=== PATIENT | male | born 1970 | race Two or more races ===

== ENCOUNTER 2024-09-19 15:11 | Outpatient (AMB) | payer MEDICAID, SELFPAY ==
[2024-09-19 15:26] VITALS: BP 142/85; PULSE 62; RESP 18; TEMP 36.6; O2SAT 97; BMI 28.2
--- NOTE | 2024-09-19 15:26 | ORTHONT_ITS ---
Vital signs 09/19/24 15:26 Height 1.8 m Height Method Stated Weight 91.399 kg Weight Measurement Method Standing Scale BMI 28.2 BP 142/85 H Blood Pressure Source Automatic Cuff Blood Pressure Location Right Upper Arm Position Sitting Respiration 18 Pulse 62 Pulse Source Monitor Temp 97.8 F Temp Source Temporal Artery Scan Pulse Oximetry (%) 97 Oxygen Delivery Method Room Air Med/Allergies Allergies & Medications Allergies No Known Allergies Allergy (Verified 09/19/24 15:27) Medication Reconciliation oxycodone 5 mg capsule 5 mg PO Q6H PRN Pain 03/26/24 [History Confirmed 09/19/24] Subjective Visit Visit for: follow up visit Immunization / Flu Flu Vaccine in the Last 12 Months: No Flu Vaccine Exclusion Criteria: No Exclusion Criteria History of Present Illness Chief complaint: hip incision area hurts, hears popping sound Patient is a 53-year-old male who is 5 months from a left hip cephalomedullary nail. He is walking without any assistive device. He has minimal pain. 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 Exam Exam Patient is in no acute distress and is cooperative with the examination today. Patient has a normal mood and affect. Breathing is nonlabored. In no respiratory distress. Bilateral extremities were evaluated and demonstrates sensation intact to light touch. Palpable pedal pulses are present. No significant edema is present. Left hip incision is clean dry intact. He has no pain with logroll His gait is nonantalgic. Assessment and Plan Problem List (1) Intertrochanteric fracture of left hip: Qualifiers: Encounter type: subsequent encounter Fracture type: closed Fracture alignment: nondisplaced Fracture healing: with routine healing Qualified Code(s): S72.145D - Nondisplaced intertrochanteric fracture of left femur, subsequent encounter for closed fracture with routine healing Status: Acute Plan: Patient is a pleasant 53-year-old male status post cephalomedullary nail for intertrochanteric fracture. The patient is doing well. He has Minimal pain We will get new x-rays as he reports a little bit of tenderness laterally. He reports that he feels some clicking. Office Procedures GNS Level of Care Nursing/Assessment Patient Status: Established Patient Nursing Assessment/Reassesment: Medication Reconciliation, Update PMH in EMR and Vital Signs Coordination of Care: Complex Care and Chronic Disease 1-5, Education Complex Pt/Fam, Consent,records obtained, informed consent, Results/Orders obtained and Staff clarify orders Special Needs: Language special needs Established Patient Charge Established Patient Point Assignment: 95 Established Patient Point Charge: EP Level 3 (80-115) Past Medical History Past Medical History Have you ever been diagnosed with any of the following: Neurological Problems Cerebrovascular Accident (CVA): No Seizures: No Cardiology Problems Atrial Fibrillation: No Hypercholesterolemia: Yes Congestive Heart Failure: No Hypertension: Yes (controlled at this time, not taking meds any more) Respiratory Problems Chronic Obstructive Pulmonary Disease (COPD): No Asthma: No Pneumonia: No Sleep Apnea: No Hx Cough: No Cough: No Wheezing: No Smoking: No Smoking Cessation Counseling: No Smoking Exposure: No Tobacco Use: No Clubbing: No Stomache/Intestinal Problems Hepatitis: No Gastroesophageal Reflux Disease: Yes Genital/Urinary Problems Renal Disease: No Reproductive Problems Testicular Cancer: No Musculoskeletal Problems Arthritis: Yes Carpal Tunnel Syndrome: No Fractures: Yes (hip fx left) Head,Eye,Nose,Throat Problems Cataracts: Yes Endocrine Problems Diabetes Mellitus Type 1: No Diabetes Mellitus Type 2: Yes Blood Problems Anemia: No Psychologic Problems Depression: Yes Anxiety: Yes Other Problems Hospitalization: Yes Down Syndrome: No Developmental Delay: No Shingles: No Falls: No Blood Transfusions: No Blood Transfusion Reaction: No Anesthesia Reactions: No Organ Transplant: No Chemotherapy: Yes (2 days ago) Radiation Therapy: Yes (last week) Hyperbaric Therapy: No MRSA: No VRSA: No Vancomycin-Resistant Enterococci: No Human Immunodeficiency Virus (HIV): No Chicken Pox: No Measles: No Mumps: No Rubella (Pashto Measles): No Pertussis: No Clostridium Difficile: No Cancer: Yes (multiple myeloma) Surgical History Pacemaker: No
== END 2024-09-19 15:53 | disposition home or self-care (01) ==
LOC: HODSRG 15:11
PROVIDERS: Supervising Provider Orthopaedic Surgery Adult Reconstructive Orthopaedic Surgery; Visit Provider Orthopaedic Surgery Adult Reconstructive Orthopaedic Surgery
DX: S72.145D Nondisplaced intertrochanteric fracture of left femur, subsequent encounter for closed fracture with routine healing (principal); X58.XXXD Exposure to other specified factors, subsequent encounter; I10 Essential (primary) hypertension; E78.00 Pure hypercholesterolemia, unspecified
CPT/HCPCS: 99213; G0463

== ENCOUNTER 2024-10-10 14:38 | Outpatient (AMB) | payer MEDICAID, SELFPAY ==
[2024-10-10 14:51] VITALS: BP 125/81; PULSE 57; RESP 18; TEMP 36.6; O2SAT 94; BMI 28.5
--- NOTE | 2024-10-10 14:51 | ORTHONT_ITS ---
Vital signs 10/10/24 14:51 Height 1.8 m Height Method Stated Weight 92.334 kg Weight Measurement Method Standing Scale BMI 28.5 BP 125/81 Blood Pressure Source Automatic Cuff Blood Pressure Location Right Upper Arm Position Sitting Respiration 18 Pulse 57 L Pulse Source Monitor Temp 97.8 F Temp Source Temporal Artery Scan Pulse Oximetry (%) 94 L Oxygen Delivery Method Room Air Med/Allergies Allergies & Medications Allergies No Known Allergies Allergy (Verified 10/10/24 14:51) Medication Reconciliation oxycodone 5 mg capsule 5 mg PO Q6H PRN Pain 03/26/24 [History Confirmed 10/10/24 ] Subjective Visit Visit for: follow up visit, hip and x-rays Immunization / Flu Flu Vaccine in the Last 12 Months: No Flu Vaccine Exclusion Criteria: No Exclusion Criteria History of Present Illness Chief complaint: F/U HIP XRAYS Patient is a 53-year-old male who is 5 months from a left hip cephalomedullary nail. He is walking without any assistive device. He has minimal pain. 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 Exam Exam Patient is in no acute distress and is cooperative with the examination today. Patient has a normal mood and affect. Breathing is nonlabored. In no respiratory distress. Bilateral extremities were evaluated and demonstrates sensation intact to light touch. Palpable pedal pulses are present. No significant edema is present. Left hip incision is clean dry intact. He has no pain with logroll His gait is nonantalgic. X-rays of the left hip intratrochanteric fracture demonstrates good healing Assessment and Plan Problem List (1) Intertrochanteric fracture of left hip: Qualifiers: Encounter type: subsequent encounter Fracture type: closed Fracture alignment: nondisplaced Fracture healing: with routine healing Qualified Code(s): S72.145D - Nondisplaced intertrochanteric fracture of left femur, subsequent encounter for closed fracture with routine healing Status: Acute Plan: Patient is a pleasant 54-year-old male status post cephalomedullary nail for intertrochanteric fracture. The patient is doing well. He has Minimal pain He is doing well. He can see me on an as-needed basis Office Procedures GNS Level of Care Nursing/Assessment Patient Status: Established Patient Nursing Assessment/Reassesment: Medication Reconciliation, Update PMH in EMR and Vital Signs Coordination of Care: Complex Care and Chronic Disease 1-5, Education Complex Pt/Fam, Consent,records obtained, informed consent, Results/Orders obtained and Staff clarify orders Special Needs: Language special needs Established Patient Charge Established Patient Point Assignment: 95 Past Medical History Past Medical History Have you ever been diagnosed with any of the following: Neurological Problems Cerebrovascular Accident (CVA): No Seizures: No Cardiology Problems Atrial Fibrillation: No Hypercholesterolemia: Yes Congestive Heart Failure: No Hypertension: Yes (controlled at this time, not taking meds any more) Respiratory Problems Chronic Obstructive Pulmonary Disease (COPD): No Asthma: No Pneumonia: No Sleep Apnea: No Hx Cough: No Cough: No Wheezing: No Smoking: No Smoking Cessation Counseling: No Smoking Exposure: No Tobacco Use: No Clubbing: No Stomache/Intestinal Problems Hepatitis: No Gastroesophageal Reflux Disease: Yes Genital/Urinary Problems Renal Disease: No Reproductive Problems Testicular Cancer: No Musculoskeletal Problems Arthritis: Yes Carpal Tunnel Syndrome: No Fractures: Yes (hip fx left) Head,Eye,Nose,Throat Problems Cataracts: Yes Endocrine Problems Diabetes Mellitus Type 1: No Diabetes Mellitus Type 2: Yes Blood Problems Anemia: No Psychologic Problems Depression: Yes Anxiety: Yes Other Problems Hospitalization: Yes Down Syndrome: No Developmental Delay: No Shingles: No Falls: No Blood Transfusions: No Blood Transfusion Reaction: No Anesthesia Reactions: No Organ Transplant: No Chemotherapy: Yes (2 days ago) Radiation Therapy: Yes (last week) Hyperbaric Therapy: No MRSA: No VRSA: No Vancomycin-Resistant Enterococci: No Human Immunodeficiency Virus (HIV): No Chicken Pox: No Measles: No Mumps: No Rubella ([place] Measles): No Pertussis: No Clostridium Difficile: No Cancer: Yes (multiple myeloma) Surgical History Pacemaker: No
== END 2024-10-10 15:11 | disposition home or self-care (01) ==
LOC: HODSRG 14:38
PROVIDERS: Supervising Provider Orthopaedic Surgery Adult Reconstructive Orthopaedic Surgery; Visit Provider Orthopaedic Surgery Adult Reconstructive Orthopaedic Surgery
DX: S72.142D Displaced intertrochanteric fracture of left femur, subsequent encounter for closed fracture with routine healing (principal); X58.XXXD Exposure to other specified factors, subsequent encounter; I10 Essential (primary) hypertension; E78.00 Pure hypercholesterolemia, unspecified
CPT/HCPCS: 99213; G0463

== ENCOUNTER 2024-12-13 01:34 | Emergency (ER) | payer MEDICAID, SELFPAY ==
[2024-12-13 01:35] VITALS: BMI 27.3
[2024-12-13 01:58] VITALS: BP 157/89; PULSE 66; RESP 17; TEMP 36.6; O2SAT 98
--- NOTE | 2024-12-13 02:09 | PD.EDRME ---
Rapid Medical Screening Exam RME Arrival date/time: 12/13/24 01:34 54-year-old male past medical history multiple myeloma and lower back radiation presents emergency department complaining of low back pain that radiates to left leg with left leg numbness that is been ongoing for 1 week. Patient denies any bowel or bladder dysfunction. Time Seen by Provider: 12/13/24 01:44 Vital signs: Vital Signs Temperature 97.9 F 12/13/24 01:58 Pulse Rate 66 12/13/24 01:58 Respiratory Rate 17 12/13/24 01:58 Blood Pressure 157/89 H 12/13/24 01:58 Pulse Oximetry (%) 98 12/13/24 01:58 Oxygen Delivery Method Room Air 12/13/24 01:58 Vital signs reviewed by provider: Yes
--- NOTE | 2024-12-13 02:10 | XR_ITS ---
Examination: CT lumbar spine, without contrast. 2-D sagittal reconstructions. 2-D coronal reconstructions. 3-D reconstructions. Date and time of exam:December 13, 2024 0225 hrs. Indications: Lower back pain today, history bone cancer, diagnosis multiple myeloma CTDI: vol (mGy):24.9 DLP: (mGycm):928 Technique: Multiple 1.25 mm axial sections of the lumbar spine without intravenous contrast have been obtained. 2-D sagittal and coronal reconstructions have been obtained. 3-D reconstructions have been obtained. Low dose protocols were performed. One or more of the following dose reduction techniques were used; automated exposure control, adjustment of the mA and/or KV according to patient size, use of iterative reconstruction technique. 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
[2024-12-13] MEDS: GABAPENTIN 300 MG CAPSULE PO (02:15)
--- NOTE | 2024-12-13 03:49 | PRELIM_ITS ---
CT scan of the lumbar spine without intravenous contrast (axial sections with sagittal and coronal re formats) December 13, 2024 at 0225 hours Clinical History: Low back pain. Correlated with prior MRI [facility] dated February 28, 2024.Findings:Chronic pathologic compression fracture of the vertebral body of L3 , acute on chronic fracture at this level cannot be excluded. Innumerable lytic bone metastases invol ving all the imaged bone segments.No acute fractures.Vascular calcifications.Loss of the physiologic lumbar lordosis.Mild posterior disc bulging at L2-L3, L3-L4, and L4-L5 without evidence of spinal can al stenosis or neuroforaminal narrowing.Impression:1. Diffuse metastatic bone disease. If leptomening eal disease is clinically suspected consider correlation with MRI with and without contrast.2. Chroni c pathologic compression fracture of the vertebral body of L3, acute on chronic fracture at this leve l cannot be excluded. Consider correlation with MRI.3. Mild posterior disc bulging at L2-L3, L3-L4, and L4-L5 without evidence of spinal canal stenosis or neuroforaminal narrowing. Consider correlation with MRI if clinically indicated. Report Electronically Signed By: Nolan Padron 12/13/2024 3:48:5 3 AM [EST]
--- NOTE | 2024-12-13 06:43 | XR_ITS ---
Examination:Left hip AP, lateral, AP pelvis 3 views Technique: Hip AP lateral, AP pelvis, 3 views Exam date and time:December 13, 2024 0704 hrs. Indications: Left hip pain beginning one week ago, history left hip surgery 11 months ago Findings: Status post operative reduction internal fixation left hip fracture with satisfactory alignment There appears to be significant healing at the left hip fracture site No definite loosening of the orthopedic hardware No hip dislocation Impression: Healed left hip fracture with adequate alignment However, consider CT scan left hip femoral shaft follow-up if the patient has persisting pain.
--- NOTE | 2024-12-13 06:43 | XR_ITS ---
Examination: Left femur 2 views Technique one AP lateral left femur 2 views Exam date and time: December 13, 2024 0710 hrs. Comparison September 19, 2024 Indications: Onset left hip pain left leg pain beginning one week ago, left hip surgery 11 months ago Findings: Healed fracture left hip Orthopedic hardware satisfactory position with no definite loosening No cortical bone destruction or osteomyelitis Impression: Healed left hip fracture as above If pain persists, consider CT scan left hip femoral shaft follow-up
--- NOTE | 2024-12-13 06:54 | EDNOTE_ITS ---
Lower Extremity Injury RME/HPI General Chief Complaint: General Adult/Misc Complain Stated Complaint: Hip Pain/Hx of CA, Hip Sx Time Seen by Provider: 12/13/24 01:44 Arrival date/time: 12/13/24 01:34 RME / HPI RME / HPI Narrative: 12/13/24 01:34 54-year-old male past medical history multiple myeloma and lower back radiation presents emergency department complaining of low back pain that radiates to left leg with left leg numbness that is been ongoing for 1 week. Patient denies any bowel or bladder dysfunction. DR. FLORES MAIN ED EVALUATION 54 year old male with history of multiple myeloma with osteolytic lesions undergoing chemo therapy, hypertension, diabetes, history of left hip fracture presents to the ED for evaluation of left hip pain beginning 3 days ago. Described as aching in sensation, rating as moderate. Accompanied by numbness. States he has taken 10mg Oxycodone q6h without any improvement. Denies taking any other pain medication. Denies fevers, chills, injury/trauma. No other complaints reported. Oncologist: Dr. Jennings in [place]. Related Data Home Medications ?Medication ?Instructions ?Recorded ?Confirmed oxycodone 5 mg capsule 5 mg PO Q6H PRN Pain 03/26/24 10/10/24 Allergies Allergy/AdvReac Type Severity Reaction Status Date / Time No Known Allergies Allergy Verified 10/10/24 14:51 Review of Systems Review of Systems Narrative Review of Systems: GEN: No fever, no chills, no weight loss EYES: No discharge, no visual changes, no pain HEENT: No ear pain, no congestion, no sore throat PULM: No shortness of breath, no cough, no congestion CV: No chest pain, no dyspnea on exertion, no palpitations GI: No nausea, no vomiting, no diarrhea, no pain, no constipation : No frequency, no urgency, no dysuria MUSC/SKEL: +left hip pain, no back pain SKIN: No rash NEURO: No weakness, no headache Past Medical History Past Medical History CARDIAC: Positive Cardiac Disorders, Hypercholesterolemia and Hypertension (controlled at this time, not taking meds any more) GASTROINTESTINAL: Positive Gastrointestinal Disorders and Gastroesophageal Reflux Disease GENITOURINARY: Positive Genitourinary Disorders (urgency) MUSCULOSKELETAL: Positive Musculoskeletal Disorders, Arthritis and Fractures (hip fx left) ENT: Positive Cataracts ENDOCRINE: Positive Endocrine Disorders and Diabetes Mellitus Type 2 PSYCHO/SOCIAL: Positive Depression and Anxiety OTHER HISTORY: Positive Hospitalization, Chemotherapy (2 days ago), Radiation Therapy (last week) and Cancer (multiple myeloma) Family History FAMILY HISTORY: Positive Family Cancer Social History SMOKING STATUS: Never smoker SECOND HAND EXPOSURE: No ED Exam Narrative Physical exam: GENERAL APPEARANCE: alert and oriented x 4, well-developed, well-nourished, no acute distress HEENT: Normocephalic, atraumatic; pupils equal, round, reactive to light; EOMI; mucous membranes pink, moist; oropharynx clear NECK: Supple LUNGS: CTABL; no wheezes, no rales, no rhonchi HEART: Regular rate, regular rhythm; normal S1, S2; no murmurs ABDOMEN: non distended; normal BS; soft, no tenderness, no guarding, no rebound; no masses, no organomegaly, no hernia BACK: no CVA tenderness EXTREMITIES: atraumatic; no edema NEUROLOGIC: awake; alert and oriented x4; cranial nerves II-XII grossly intact; no focal sensory or motor deficits PSYCHIATRIC: appropriate mood and affect SKIN: warm, dry, normal color; no rashes Course Quality Measures none Orders Category Date Time Status CT lumbar spine wo con Stat Exams 12/13/24 02:10 Completed XR femur LT 2V Stat Exams 12/13/24 06:43 Completed XR hip LT w pelvis min 4V Stat Exams 12/13/24 06:43 Completed CBC Stat Lab 12/13/24 07:48 Completed CMP [Comprehensive Metabolic Panel] Stat Lab 12/13/24 07:48 Completed Gabapentin [Neurontin] Med 12/13/24 02:12 Discontinued 300 mg PO X1 ONE HYDROcodone*/APAP 5/325 [Hobson 5/325] Med 12/13/24 06:46 Discontinued 2 tab PO X1 ONE Ketorolac Inj [Toradol Inj] Med 12/13/24 06:45 Discontinued 30 mg IM X1 ONE Vital Signs Vital signs: Vital Signs Temperature 97.9 F 12/13/24 01:58 Pulse Rate 66 12/13/24 01:58 Respiratory Rate 17 12/13/24 01:58 Blood Pressure 157/89 H 12/13/24 01:58 Pulse Oximetry (%) 98 12/13/24 01:58 Oxygen Delivery Method Room Air 12/13/24 01:58 Pulse ox is 98% on room air which is adequate. Extremity Injury, Lower MDM Narrative MDM Narrative:: Mely Bradley am scribing for and in the presence of Dr. Flores. Patient data External records reviewed:: [facility] previous records (I reviewed outpatient ortho visit from 10/10/2024 ) Clinical information provided by:: patient Social determinants that could affect healthcare access:: none Patient has the following chronic illnesses:: multiple myeloma with osteolytic lesions undergoing chemo therapy, hypertension, diabetes, history of left hip fracture How is presenting disease/condition affected by chronic disease/condition?: exacerbated by Evaluation data The following diagnostics were reviewed and interpreted by me:: lab results and radiology exam(s) Lab and/or radiology exams considered but not ordered:: None Interpretation Summary: Ordering Physician: Vandana PFEIFFER),Jerrod LUGO Date of Service: 12/13/24 Procedure(s): CT lumbar spine wo con Accession Number(s): [id number] cc: Bteo Ozuna MD; Vandana PFEIFFER),Jerrod LUGO; Anthony Prabhakar MD~ Examination: CT lumbar spine, without contrast. 2-D sagittal reconstructions. 2-D coronal reconstructions. 3-D reconstructions. Date and time of exam:December 13, 2024 0225 hrs. Indications: Lower back pain today, history bone cancer, diagnosis multiple myeloma CTDI: vol (mGy):24.9 DLP: (mGycm):928 Technique: Multiple 1.25 mm axial sections of the lumbar spine without intravenous contrast have been obtained. 2-D sagittal and coronal reconstructions have been obtained. 3-D reconstructions have been obtained. Low dose protocols were performed. One or more of the following dose reduction techniques were used; automated exposure control, adjustment of the mA and/or KV according to patient size, use of iterative reconstruction technique. 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 Dictated By: Beto Ozuna MD Signed By: <Electronically signed by Beto Ozuna MD in [place]> 12/13/24 0750 == Ordering Physician: Eri Flores MD Date of Service: 12/13/24 Procedure(s): XR femur LT 2V Accession Number(s): [id number] cc: Beto Ozuna MD; Eri Flores MD; Anthony Prabhakar MD~ Examination: Left femur 2 views Technique one AP lateral left femur 2 views Exam date and time: December 13, 2024 0710 hrs. Comparison September 19, 2024 Indications: Onset left hip pain left leg pain beginning one week ago, left hip surgery 11 months ago Findings: Healed fracture left hip Orthopedic hardware satisfactory position with no definite loosening No cortical bone destruction or osteomyelitis Impression: Healed left hip fracture as above If pain persists, consider CT scan left hip femoral shaft follow-up Dictated By: Beto Ozuna MD Signed By: <Electronically signed by Beto Ozuna MD in [place]> 12/13/24 0738 == Ordering Physician: Eri Flores MD Date of Service: 12/13/24 Procedure(s): XR hip LT w pelvis min 4V Accession Number(s): [id number] cc: Beto Ozuna MD; Eri Flores MD; Anthony Prabhakar MD~ Examination:Left hip AP, lateral, AP pelvis 3 views Technique: Hip AP lateral, AP pelvis, 3 views Exam date and time:December 13, 2024 0704 hrs. Indications: Left hip pain beginning one week ago, history left hip surgery 11 months ago Findings: Status post operative reduction internal fixation left hip fracture with satisfactory alignment There appears to be significant healing at the left hip fracture site No definite loosening of the orthopedic hardware No hip dislocation Impression: Healed left hip fracture with adequate alignment However, consider CT scan left hip femoral shaft follow-up if the patient has persisting pain. Dictated By: Beto Ozuna MD Signed By: <Electronically signed by Beto Ozuna MD in [place]> 12/13/24 0739 Medications / Prescriptions Medications or Prescriptions considered but not ordered:: None Medication administrations:: Medication Administration History Discontinued Medications Hydrocodone Bitart/Acetaminophen (Hydrocodone/Apap 5/325 Tablet) 2 tab PO X1 ONE Stop: 12/13/24 06:47 Last Admin: 12/13/24 07:34 Dose: 2 tab Documented By: RICHARD Gabapentin (Gabapentin 300 Mg Capsule) 300 mg PO X1 ONE Stop: 12/13/24 02:13 Last Admin: 12/13/24 02:15 Dose: 300 mg Documented By: KG Ketorolac Tromethamine (Ketorolac Inj 30 Mg/Ml Vial) 30 mg IM X1 ONE Stop: 12/13/24 06:46 Last Admin: 12/13/24 07:33 Dose: 30 mg Documented By: RICHARD See above Consultations Consultation(s) initiated? (list below): No Diagnosis Extremity Injury, Lower Differential Diagnosis: fracture of hip and other (hip dislocation, sciatica, arthritis) Most likely diagnosis given after review of the tests above:: Multiple myeloma Low back pain Left thigh pain Admission Indicated Admission indicated?: not indicated Admission Request Was there a request for admission?: No Disposition Plan Disposition Plan: Discharge Discharge Attestation Discharge Attestation: The patient and all family members were given an opportunity to ask questions and understood the discharge instructions. Discharge instructions specifically effects, indications for sooner follow up or return to the emergency department, and the expected course of current diagnosis. Patient condition: Stable Discharge Plan Plan Patient Disposition: HOME (Self Care) Prescriptions/Referrals Prescriptions/Med Rec: No Action oxycodone 5 mg Capsule 5 mg PO Q6H PRN (Reason: Pain) Referrals: Anthony Prabhakar MD [Primary Care Provider] - In 1 week Problem List Clinical Impression: Multiple myeloma, Low back pain, Left thigh pain Patient/Caregiver Discharge Instructions Education Materials: Cancer Overview Additional Instructions: Follow up with your oncologist Dr Jennings for further workup and treatment Print Language: Persian Stand Alone Forms: Gisele Award Info., Patient Portal Info Letter
[2024-12-13] MEDS: KETOROLAC INJ 30 MG/ML VIAL IM (07:33)
[2024-12-13] MEDS: HYDROcodone/APAP 5/325 TABLET 2 TAB PO (07:34)
[2024-12-13 08:01] LABS: Basophils % (Auto) 0 % (0-2.5); Eosinophils # (Auto) 0.1 Thou/mm3 (0.0-0.5); Eosinophils % (Auto) 2 % (0-10); Hematocrit 39.4 % (41.0-53.0); Hemoglobin 13.6 g/dL (13.5-16.0); Immature Granulocytes % (Auto) 1 % (0-0); Immature Granulocytes Auto 0.04 Thou/mm3 (0.00-0.00); Lymphocytes # (Auto) 0.6 Thou/mm3 (1.0-4.8); Lymphocytes % (Auto) 18 % (10-50); Mean Corpuscular HGB Conc 34.5 g/dl (31.0-37.0); Mean Corpuscular Hemoglobin 26.4 pg (25.0-35.0); Mean Corpuscular Volume 77 fL (80-100); Monocytes # (Auto) 0.3 Thou/mm3 (0.0-0.8); Monocytes % (Auto) 9 % (0-12); Neutrophils # (Auto) 2.2 Thou/mm3 (1.8-7.7); Neutrophils % (Auto) 69 % (37-80); Nucleated Red Blood Cell # 0.04 Thou/mm3 (0.00-0.00); Nucleated Red Blood Cell % 1 /100 WBC (0); Platelet Count 115 Thou/mm3 (140-440); RDW Standard Deviation 42.7 fL (35.1-43.9); Red Blood Count 5.15 Miln/mm3 (4.50-5.90); White Blood Count 3.2 Thou/mm3 (3.8-10.6)
[2024-12-13 08:12] VITALS: BP 127/73; PULSE 53; RESP 16; TEMP 37.1; O2SAT 96
[2024-12-13 08:16] LABS: Alanine Aminotransferase 30 U/L (10-49); Albumin, Serum 4.3 gm/dL (3.5-5.0); Albumin/Globulin Ratio 2.2 (1.2-2.2); Alkaline Phosphatase 75 U/L (46-116); Anion Gap 6 (7-16); Aspartate Amino Transferase 18 U/L (0-34); BUN/Creatinine Ratio 16 Ratio (12-20); Bilirubin,Total 0.4 mg/dL (0.3-1.2); Blood Urea Nitrogen 11 mg/dL (9-23); Calcium 8.6 mg/dL (8.3-10.6); Calcium (Corrected) 8.6 mg/dL (8.5-10.1); Carbon Dioxide 27.8 mMol/L (20.0-31.0); Chloride 103 mMol/L (98-107); Creatinine (Component) 0.7 mg/dL (0.6-1.3); Estimated Creatinine Clearance 125.5 mL/min (>60); Glucose 124 mg/dL (74-106); Osmolality,Calculated 274 (275-295); Potassium 4.4 mMol/L (3.4-5.1); Sodium 137 mMol/L (136-145); Total Protein 6.3 gm/dL (5.7-8.2); eGFR > 60 See Note
[2024-12-13 08:57] VITALS: BP 126/73; PULSE 57; RESP 18; TEMP 36.7; O2SAT 95
[2024-12-13 10:08] VITALS: BP 132/72; PULSE 59; RESP 18; O2SAT 100
== END 2024-12-13 10:10 | disposition home or self-care (01) ==
PROVIDERS: Emergency Medicine; Emergency Provider Emergency Medicine; PCP Family Medicine
DX: M54.50 Low back pain, unspecified (principal); M79.652 Pain in left thigh; M25.552 Pain in left hip; C90.00 Multiple myeloma not having achieved remission
CPT/HCPCS: 36415; 72131; 73503; 73552; 80053; 85025; 96372; 99284; J1885; A9270

== ENCOUNTER 2025-01-17 01:30 | Emergency (ER) | payer MEDICAID, SELFPAY ==
[2025-01-17 01:31] VITALS: BMI 25.1
[2025-01-17 02:00] VITALS: BP 132/74; PULSE 87; RESP 16; TEMP 37.3; O2SAT 96
--- NOTE | 2025-01-17 02:13 | PD.EDBACK ---
ED Back Injury Pain RME/HPI General Chief Complaint: Back Pain/Injury Stated Complaint: BACK PAIN X 3DAYS Time Seen by Provider: 01/17/25 01:42 Source: patient Arrival date/time: 01/17/25 01:30 54-year-old male with past medical history of multiple myeloma currently receiving radiation to lower back presents emergency department complaining of low back pain. Patient mehrdad is currently taking oxycodone at home for pain and completed short treatment of steroids a week ago that helped pain. Patient mehrdad has follow-up with cancer doctor in [place] this coming Wednesday and is requesting steroids for pain again. Patient denies any fever, chills, bowel or bladder dysfunction, dysuria, saddle anesthesia, or any other associated symptom. Mode of arrival: ambulatory Limitations: no limitations Related Data Home Medications ?Medication ?Instructions ?Recorded ?Confirmed oxycodone 5 mg capsule 5 mg PO Q6H PRN Pain 03/26/24 10/10/24 Previous Rx's ?Medication ?Instructions ?Recorded ibuprofen 600 mg tablet 600 mg PO Q6H PRN pain #30 tabs 12/13/24 hydrocodone 5 mg-acetaminophen 325 See Rx Instructions .Route 12/14/24 mg tablet .COMPLEX PRN pain #20 tabs Allergies Allergy/AdvReac Type Severity Reaction Status Date / Time No Known Allergies Allergy Verified 10/10/24 14:51 Review of Systems Review of Systems Systems Reviewed: All systems reviewed, normal except as documented Constitutional Constitutional: Reports system reviewed and no additional complaints, except as documented, Denies body ache(s), Denies chills and Denies fever(s) Eyes Eyes: Reports system reviewed and no additional complaints, except as documented and Denies change in vision ENT Ears, Nose, Mouth, and Throat: Reports system reviewed and no additional complaints, except as documented, Denies disequilibrium, Denies dizziness, Denies sore throat and Denies vertigo Cardiovascular Cardiovascular: Reports system reviewed and no additional complaints, except as documented, Denies chest pain and Denies dyspnea Respiratory Respiratory: Reports system reviewed and no additional complaints, except as documented, Denies chest congestion, Denies cough and Denies dyspnea Gastrointestinal Gastrointestinal: Reports system reviewed and no additional complaints, except as documented, Denies abdominal pain, Denies nausea and Denies vomiting Musculoskeletal Musculoskeletal: Reports system reviewed and no additional complaints, except as documented, Denies abnormal gait, Denies arthralgias and Reports back pain Integumentary/Breasts Skin/Breast: Reports system reviewed and no additional complaints, except as documented, Denies erythema, Denies rash and Denies wounds Neurologic Neurologic: Reports system reviewed and no additional complaints, except as documented, Denies abnormal gait, Denies disequilibrium, Denies dizziness and Denies vertigo Past Medical History Past Medical History NEUROLOGIC: Negative Neurological Disorders, Cerebrovascular Accident or Seizures CARDIAC: Positive Cardiac Disorders, Hypercholesterolemia and Hypertension (controlled at this time, not taking meds any more); Negative Atrial Fibrillation or Congestive Heart Failure RESPIRATORY: Negative Chronic Obstructive Pulmonary Disease (COPD), Asthma, Pneumonia, Sleep Apnea, Cough, Sputum Production, Wheezing, Smoking, Smoking Cessation Counseling, Smoking Exposure, Tobacco Use or Clubbing GASTROINTESTINAL: Positive Gastrointestinal Disorders and Gastroesophageal Reflux Disease; Negative Hepatitis GENITOURINARY: Positive Genitourinary Disorders (urgency); Negative Renal Disease REPRODUCTIVE: Negative Testicular Cancer MUSCULOSKELETAL: Positive Musculoskeletal Disorders, Arthritis and Fractures (hip fx left); Negative Carpal Tunnel Syndrome ENT: Positive Cataracts ENDOCRINE: Positive Endocrine Disorders and Diabetes Mellitus Type 2; Negative Diabetes Mellitus Type 1 HEMATOLOGIC: Negative Blood Disorders or Anemia PSYCHO/SOCIAL: Positive Depression and Anxiety OTHER HISTORY: Positive Hospitalization, Chemotherapy (2 days ago), Radiation Therapy (last week) and Cancer (multiple myeloma); Negative Autoimmune Disease, Down Syndrome, Developmental Delay, Shingles, Falls, Blood Transfusions, Blood Transfusion Reaction, Anesthesia Reactions, Organ Transplant, Hyperbaric Therapy, MRSA, VRSA, Vancomycin-Resistant Enterococci, Human Immunodeficiency Virus (HIV), Chicken Pox, Measles, Mumps, Rubella (Slov[place] Measles), Pertussis, Clostridium Difficile or Testicular Cancer Family History FAMILY HISTORY: Positive Family Cancer; Negative Family Psychiatric Problems, Family Respiratory Disorders, Family Cardiac Disorders, Family Gastrointestinal Problems, Family Surgery or Family Anesthesia Reaction Surgical History SURGICAL: Negative Pacemaker, Endocrine Surgery, Abdominal Surgery, Nephrectomy, Transurethral Resection, Joint Replacement, Amputation, Open Reduction Internal Fixation, Arthroscopy, Neurologic Surgery, Brain Shunt, Vasectomy or Organ Transplant Social History SMOKING STATUS: Never smoker SECOND HAND EXPOSURE: No ED Exam General Limitations: Present no limitations General appearance: Present alert and in no apparent distress Head Head exam: Present atraumatic Eye Eye exam: Present normal appearance, PERRL and EOMI ENT ENT exam: Present normal exam, normal oropharynx and mucous membranes moist Neck Neck exam: Present normal inspection, full ROM and trachea midline Chest Chest inspection: Present normal inspection and symmetric chest wall rise Respiratory Respiratory exam: Present normal lung sounds bilaterally Cardiovascular Cardiovascular exam: Present regular rate, normal rhythm and normal heart sounds Abdominal Exam Abdominal exam: Present soft and normal bowel sounds Extremities Exam Extremities exam: Present normal inspection and full ROM Back Exam Back exam: Present normal inspection, full ROM and sciatic notch tenderness (L); Absent CVA tenderness (R) or CVA tenderness (L) Neurological Exam Neurological exam: Present alert, oriented X3 and CN II-XII intact Psychiatric Psychiatric exam: Present normal affect and normal mood Skin Skin exam: Present warm, dry, intact and normal color Course Quality Measures none Vital Signs Vital signs: Vital Signs Temperature 99.2 F 01/17/25 02:00 Pulse Rate 87 01/17/25 02:00 Respiratory Rate 16 01/17/25 02:00 Blood Pressure 132/74 H 01/17/25 02:00 Pulse Oximetry (%) 96 01/17/25 02:00 Oxygen Delivery Method Room Air 01/17/25 02:00 96% room air within normal limits Back Pain / Injury MDM Narrative MDM Narrative:: 54-year-old male with past medical history of multiple myeloma currently receiving radiation to lower back presents emergency department complaining of low back pain. Patient reports is currently taking oxycodone at home for pain and completed short treatment of steroids a week ago that helped pain. Patient reports has follow-up with cancer doctor in [place] this coming Wednesday and is requesting steroids for pain again. Patient denies any fever, chills, bowel or bladder dysfunction, dysuria, saddle anesthesia, or any other associated symptom. Patient appears nontoxic and is hemodynamically stable. Patient will be given IM 10 mg dexamethasone and instructed to have close follow-up with primary care provider and keep appointment with cancer doctor on Wednesday. Instructed to return immediately to emergency department for any worsening symptoms or as needed. Patient data External records reviewed:: [facility] previous records Clinical information provided by:: patient Social determinants that could affect healthcare access:: none Patient has the following chronic illnesses:: See chart How is presenting disease/condition affected by chronic disease/condition?: exacerbated by Evaluation data The following diagnostics were reviewed and interpreted by me:: other (specify) (N/A) Lab and/or radiology exams considered but not ordered:: N/A Interpretation Summary: N/A Medications / Prescriptions Medications or Prescriptions considered but not ordered:: N/A Medication administrations:: N/A Consultations Consultation(s) initiated? (list below): No Diagnosis Differential diagnosis back pain/injury: lumbar radiculopathy, sciatica, strain of lumbar region, renal colic, pyelonephritis, thoracic back pain, AAA and discitis Most likely diagnosis given after review of the tests above:: Back pain Admission Indicated Admission indicated?: not indicated Admission Request Was there a request for admission?: No Disposition Plan Disposition Plan: Discharge Discharge Attestation Discharge Attestation: The patient and all family members were given an opportunity to ask questions and understood the discharge instructions. Discharge instructions specifically effects, indications for sooner follow up or return to the emergency department, and the expected course of current diagnosis. Patient condition: Stable Discharge Plan Plan Patient Disposition: HOME (Self Care) Disposition Comment: Stable Prescriptions/Referrals Prescriptions/Med Rec: No Action oxycodone 5 mg Capsule 5 mg PO Q6H PRN (Reason: Pain) ibuprofen 600 mg tablet 600 mg PO Q6H PRN (Reason: pain) Qty: 30 0RF hydrocodone-acetaminophen 5-325 mg tablet See Rx Instructions .ROUTE .COMPLEX MDD 8 PRN (Reason: pain) Qty: 20 0RF Rx Instructions: 1-2 tabs q 6 hours Referrals: Temporary Provider,ED [Primary Care Provider] - In 1 week Problem List Clinical Impression: Back pain Patient/Caregiver Discharge Instructions Discharge Activity: activity as tolerated Education Materials: Back Safety: Bending, Back Safety: Basics of Good Posture Additional Instructions: Drink plenty of fluids and get plenty of rest. Continue taking your pain medication from home as directed. Follow-up with your cancer doctor on Wednesday as we discussed and also with your primary care provider in 24 to 48 hours. Return immediately to emergency department for any worsening symptoms or as needed. Print Language: Maori Stand Alone Forms: Gisele Award Info., Patient Portal Info Letter PA/STORE ADMINISTRATIVE ASSISTANT Supervising Physician PA/STORE ADMINISTRATIVE ASSISTANT Supervising Physician: Dr. Swanson
[2025-01-17] MEDS: DEXAMETHASONE SOD PHOS INJ 10 MG/ML VIAL IM (02:20)
== END 2025-01-17 03:32 | disposition home or self-care (01) ==
LOC: SERX 02:29
PROVIDERS: Emergency Provider Emergency Medicine; PCP Family Medicine
DX: M54.50 Low back pain, unspecified (principal); C90.00 Multiple myeloma not having achieved remission
CPT/HCPCS: 96372; 99283; J1100

== ENCOUNTER 2025-01-22 15:06 | Emergency (ER) | payer MEDICAID, SELFPAY ==
[2025-01-22 16:05] VITALS: BP 135/89; PULSE 48; RESP 18; TEMP 36.9; O2SAT 99
--- NOTE | 2025-01-22 16:17 | XR_ITS ---
Examination: CT thoracic spine, without contrast. 2-D sagittal reconstructions. 2-D coronal reconstructions. 3-D reconstructions. Date and time of exam:January 22, 2025 1631 hrs. Indications: Upper back pain beginning one week ago CTDI: vol (mGy):24 DLP: (mGycm):959 Technique: Multiple 1.25 mm axial sections of the thoracic spine without intravenous contrast have been obtained. 2-D sagittal and coronal reconstructions have been obtained. 3-D reconstructions have been obtained. Low dose protocols were performed. One or more of the following dose reduction techniques were used; automated exposure control, adjustment of the mA and/or KV according to patient size, use of iterative reconstruction technique. Findings: Severe osteopenia All visualized osseous structures including thoracic vertebral bodies are replaced by numerous osteolytic lesions Acute compression fracture T5, mild depression superior endplate, reduction in height less than 10% Impression: All visualized thoracic vertebral bodies are not replaced by numerous osteolytic lesions, differential would include widespread osseous metastatic disease, round cell tumors such as multiple myeloma Consider MRI thoracic spine post contrast follow-up Mild acute compression fracture T5
--- NOTE | 2025-01-22 16:17 | XR_ITS ---
Examination: CT lumbar spine, without contrast. 2-D sagittal reconstructions. 2-D coronal reconstructions. 3-D reconstructions. Date and time of exam:January 22, 2025 1634 hrs. Comparison December 13, 2024 Indications: Diagnosis multiple myeloma, lower back pain this week CTDI: vol (mGy):22.6 DLP: (mGycm):712 Technique: Multiple 1.25 mm axial sections of the lumbar spine have been obtained. 2-D sagittal and coronal reconstructions have been obtained. 3-D reconstructions have been obtained. Low dose protocols were performed. One or more of the following dose reduction techniques were used; automated exposure control, adjustment of the mA and/or KV according to patient size, use of iterative reconstruction technique. Findings: All of the vertebral bodies are replaced by osteolytic lesions, stable compressions L3 and L5 compared with December 13, 2024 Advanced disc narrowing L5-S1 No new fractures Impression: Again noted widespread osteolytic lesions throughout all visualized lumbar vertebral bodies, consistent with the patient's diagnosis of multiple myeloma Stable pathologic compressions L3 and L5 compared with December 13, 2024
--- NOTE | 2025-01-22 16:18 | PD.EDRME ---
Rapid Medical Screening Exam RME Arrival date/time: 01/22/25 15:06 54-year-old male with multiple myeloma presents to the emergency department complains of back pain Chief Complaint: Back Pain/Injury Time Seen by Provider: 01/22/25 15:41 Vital signs: Vital Signs Temperature 98.4 F 01/22/25 16:05 Pulse Rate 48 L 01/22/25 16:05 Respiratory Rate 18 01/22/25 16:05 Blood Pressure 135/89 H 01/22/25 16:05 Pulse Oximetry (%) 99 01/22/25 16:05 Oxygen Delivery Method Room Air 01/22/25 16:05
[2025-01-22 16:52] LABS: Basophils % (Auto) 0 % (0-2.5); Eosinophils % (Auto) 0 % (0-10); Hematocrit 33.5 % (41.0-53.0); Hemoglobin 11.1 g/dL (13.5-16.0); Immature Granulocytes % (Auto) 1 % (0-0); Immature Granulocytes Auto 0.03 Thou/mm3 (0.00-0.00); Lymphocytes # (Auto) 0.9 Thou/mm3 (1.0-4.8); Lymphocytes % (Auto) 23 % (10-50); Mean Corpuscular HGB Conc 33.1 g/dl (31.0-37.0); Mean Corpuscular Hemoglobin 28.5 pg (25.0-35.0); Mean Corpuscular Volume 86 fL (80-100); Monocytes # (Auto) 0.9 Thou/mm3 (0.0-0.8); Monocytes % (Auto) 23 % (0-12); Neutrophils % (Auto) 53 % (37-80); Nucleated Red Blood Cell # 0.14 Thou/mm3 (0.00-0.00); Nucleated Red Blood Cell % 4 /100 WBC (0); Platelet Count 102 Thou/mm3 (140-440); RDW Standard Deviation 55.5 fL (35.1-43.9); Red Blood Count 3.89 Miln/mm3 (4.50-5.90); White Blood Count 3.8 Thou/mm3 (3.8-10.6)
[2025-01-22] MEDS: DEXAMETHASONE SOD PHOS INJ 10 MG/ML VIAL IM (17:06)
[2025-01-22 17:36] LABS: Alanine Aminotransferase 36 U/L (10-49); Albumin, Serum 3.9 gm/dL (3.5-5.0); Anion Gap 9 (7-16); Aspartate Amino Transferase 12 U/L (0-34); BUN/Creatinine Ratio 27 Ratio (12-20); Bilirubin,Total 0.5 mg/dL (0.3-1.2); Blood Urea Nitrogen 16 mg/dL (9-23); Calcium 9.2 mg/dL (8.3-10.6); Calcium (Corrected) 9.3 mg/dL (8.5-10.1); Chloride 103 mMol/L (98-107); Creatinine (Component) 0.6 mg/dL (0.6-1.3); Glucose 152 mg/dL (74-106); Osmolality,Calculated 279 (275-295); Sodium 138 mMol/L (136-145); Total Protein 5.9 gm/dL (5.7-8.2); eGFR > 60 See Note
[2025-01-22 17:50] LABS: Alkaline Phosphatase 68 U/L (46-116)
--- NOTE | 2025-01-22 19:45 | PD.EDRME ---
Rapid Medical Screening Exam RME Arrival date/time: 01/22/25 15:06 01/22/25 15:06 54-year-old male with multiple myeloma presents to the emergency department complains of back pain Chief Complaint: Back Pain/Injury Time Seen by Provider: 01/22/25 15:41 Vital signs: Vital Signs Temperature 98.4 F 01/22/25 16:05 Pulse Rate 48 L 01/22/25 16:05 Respiratory Rate 18 01/22/25 16:05 Blood Pressure 135/89 H 01/22/25 16:05 Pulse Oximetry (%) 99 01/22/25 16:05 Oxygen Delivery Method Room Air 01/22/25 16:05 RME Narrative: 01/22/25 15:06 54-year-old male with multiple myeloma presents to the emergency department complains of back pain
--- NOTE | 2025-01-22 20:20 | XR_ITS ---
Examination: CT cervical spine without contrast 2-D sagittal reconstructions 2-D coronal reconstructions 3-D reconstructions. Exam date and time:January 22, 20252026 hrs. Indications: Patient fell today with injury to the neck, neck pain CTDI:vol (mGy) 8.33 DLP: (mGycm) 198 Technique: Multiple 2 mm axial sections of the cervical spine have been obtained. The coronal and sagittal reconstructions have been obtained. 3-D reconstructions have been obtained. Low dose protocols were performed. One or more of the following dose reduction techniques were used; automated exposure control, adjustment of the mA and/or KV according to patient size, use of iterative reconstruction technique. Findings: Axial sections demonstrate intact base of the skull. C1 exhibit satisfactory relationship to the odontoid. No acute cervical vertebral body fracture seen. Alignment posterior spinous processes satisfactory. Multiple osteolytic lesions throughout all visualized osseous structures Impression: No acute cervical fracture. Widespread osteolytic lesions throughout all visualized osseous structures are
--- NOTE | 2025-01-22 20:20 | XR_ITS ---
Examination: CT brain head without contrast. 2-D sagittal coronal reconstructions Date and time of exam: Orthopedic plate and 18/03/20252026 hrs. Indications: Onset dizziness today CTDI: vol (mGy):50.4 DLP: (mGycm):1005 Technique: Multiple CT axial sections of the brain have been obtained, 5 mm slice thickness. Contrast has not been administered. 2-D sagittal, coronal reconstructions have been obtained Low dose protocols were performed. One or more of the following dose reduction techniques were used; automated exposure control, adjustment of the mA and/or KV according to patient size, use of iterative reconstruction technique. Findings: No significant ventricular enlargement. Old infarct left cerebellar hemisphere Intra-axial or extra-axial hemorrhage density is not seen. No mass effect or midline shift Basal cisterns are not remarkable. Fourth ventricle is midline. Cranial vault intact. Impression: Negative for acute hemorrhage, mass effect or midline shift Advise clinical correlation follow-up accordingly
--- NOTE | 2025-01-22 23:25 | PD.EDBACK ---
ED Back Injury Pain RME/HPI General Chief Complaint: Back Pain/Injury Stated Complaint: LOWER BACK PAIN Time Seen by Provider: 01/22/25 15:41 Arrival date/time: 01/22/25 15:06 RME / HPI RME / HPI Narrative: 01/22/25 15:06 54-year-old male with multiple myeloma presents to the emergency department complains of back pain Dr. Flores?s Main ED Evaluation: 54yo male with a history of DM, HTN, HLD, multiple myeloma with osteolytic lesions undergoing chemotherapy presents to the ED for a chief complaint of chronic back pain. Patient states he recently received an injection for his chronic pain, but reports his pain has persisted, so he came in for evaluation. He denies any recent falls or injuries. Denies any other associated symptoms. No known allergies. Related Data Home Medications ?Medication ?Instructions ?Recorded ?Confirmed oxycodone 5 mg capsule 5 mg PO Q6H PRN Pain 03/26/24 10/10/24 Previous Rx's ?Medication ?Instructions ?Recorded ibuprofen 600 mg tablet 600 mg PO Q6H PRN pain #30 tabs 12/13/24 hydrocodone 5 mg-acetaminophen 325 See Rx Instructions .Route 12/14/24 mg tablet .COMPLEX PRN pain #20 tabs Allergies Allergy/AdvReac Type Severity Reaction Status Date / Time No Known Allergies Allergy Verified 10/10/24 14:51 Review of Systems Review of Systems Systems Reviewed: All systems reviewed, normal except as documented Past Medical History Past Medical History NEUROLOGIC: Negative Neurological Disorders, Cerebrovascular Accident or Seizures CARDIAC: Positive Cardiac Disorders, Hypercholesterolemia and Hypertension (controlled at this time, not taking meds any more); Negative Atrial Fibrillation or Congestive Heart Failure RESPIRATORY: Negative Chronic Obstructive Pulmonary Disease (COPD), Asthma, Pneumonia, Sleep Apnea, Cough, Sputum Production, Wheezing, Smoking, Smoking Cessation Counseling, Smoking Exposure, Tobacco Use or Clubbing GASTROINTESTINAL: Positive Gastrointestinal Disorders and Gastroesophageal Reflux Disease; Negative Hepatitis GENITOURINARY: Positive Genitourinary Disorders (urgency); Negative Renal Disease REPRODUCTIVE: Negative Testicular Cancer MUSCULOSKELETAL: Positive Musculoskeletal Disorders, Arthritis and Fractures (hip fx left); Negative Carpal Tunnel Syndrome ENT: Positive Cataracts ENDOCRINE: Positive Endocrine Disorders and Diabetes Mellitus Type 2; Negative Diabetes Mellitus Type 1 HEMATOLOGIC: Negative Blood Disorders or Anemia PSYCHO/SOCIAL: Positive Depression and Anxiety OTHER HISTORY: Positive Hospitalization, Chemotherapy (2 days ago), Radiation Therapy (last week) and Cancer (multiple myeloma); Negative Autoimmune Disease, Down Syndrome, Developmental Delay, Shingles, Falls, Blood Transfusions, Blood Transfusion Reaction, Anesthesia Reactions, Organ Transplant, Hyperbaric Therapy, MRSA, VRSA, Vancomycin-Resistant Enterococci, Human Immunodeficiency Virus (HIV), Chicken Pox, Measles, Mumps, Rubella (Faroese Measles), Pertussis, Clostridium Difficile or Testicular Cancer Family History FAMILY HISTORY: Positive Family Cancer; Negative Family Psychiatric Problems, Family Respiratory Disorders, Family Cardiac Disorders, Family Gastrointestinal Problems, Family Surgery or Family Anesthesia Reaction Surgical History SURGICAL: Negative Pacemaker, Endocrine Surgery, Abdominal Surgery, Nephrectomy, Transurethral Resection, Joint Replacement, Amputation, Open Reduction Internal Fixation, Arthroscopy, Neurologic Surgery, Brain Shunt, Vasectomy or Organ Transplant Social History SMOKING STATUS: Never smoker SECOND HAND EXPOSURE: No ED Exam Narrative Physical exam: GENERAL APPEARANCE: alert and oriented x 4, well-developed, well-nourished, no acute distress VITALS: All vitals were reviewed and the pulse ox is 99% on room air, which is normal according to my interpretation. HEENT: normocephalic, atraumatic NECK: supple LUNGS: no respiratory distress, normal effort HEART: good peripheral perfusion ABDOMEN: non distended EXTREMITIES: atraumatic NEUROLOGIC: awake; alert and oriented x4; cranial nerves II-XII grossly intact PSYCHIATRIC: appropriate mood and affect SKIN: warm, dry, normal color; no rashes Course Quality Measures none Orders Category Date Time Status CT cervical spine wo con Stat Exams 01/22/25 20:[address] head/brain wo con Stat Exams 01/22/25 20:[address] lumbar spine wo con Stat Exams 01/22/25 16:[address] thoracic spine wo con Stat Exams 01/22/25 16:17 Completed CBC Stat Lab 01/22/25 16:22 Completed CMP [Comprehensive Metabolic Panel] Stat Lab 01/22/25 16:22 Completed Dexamethasone Inj [Decadron Inj] Med 01/22/25 17:00 Discontinued 10 mg IM X1 ONE HYDROcodone/APAP 10/325 [[place] 10/325] Med 01/22/25 16:17 Discontinued 1 tab PO X1 ONE Ketorolac Inj [Toradol Inj] Med 01/22/25 16:17 Discontinued 30 mg IM X1 ONE Vital Signs Vital signs: Vital Signs Temperature 98.4 F 01/22/25 16:05 Pulse Rate 48 L 01/22/25 16:05 Respiratory Rate 18 01/22/25 16:05 Blood Pressure 135/89 H 01/22/25 16:05 Pulse Oximetry (%) 99 01/22/25 16:05 Oxygen Delivery Method Room Air 01/22/25 16:05 Back Pain / Injury MDM Narrative MDM Narrative:: Scribe Attestation: 01/22/25 Sheila Dominguez am scribing for and in the presence of Dr. Flores. There were some concerns regarding the patient due to him initially being unsteady on his feet. CT head was ordered by the HOSPITALITY AIDE. At the time of my evaluation at 2330, patient feels asymptomatic at this time. He does have a walker at home. He denies any dizziness or any other associated symptoms. Patient is stable to be discharged home. Patient data External records reviewed:: [facility] previous records (Per chart review, patient was seen here on 01/17/25 for back pain.) Clinical information provided by:: patient Social determinants that could affect healthcare access:: none Patient has the following chronic illnesses:: DM, HTN, HLD, multiple myeloma with osteolytic lesions undergoing chemotherapy How is presenting disease/condition affected by chronic disease/condition?: caused by Evaluation data The following diagnostics were reviewed and interpreted by me:: lab results and radiology exam(s) Lab and/or radiology exams considered but not ordered:: none Interpretation Summary: WBC count is normal, CMP is normal. ---- [facility] Signed Patient: CHARANJIT AMARO [facility] Record#: [id number] Birthdate: 1970 Age/Sex: 54 / M Location: [facility] Attending Dr: Ordering Physician: Suni (AKSHAT)Curtis NP Date of Service: 01/22/25 Procedure(s): CT lumbar spine wo con Accession Number(s): [id number] cc: Suni IVERSON)Curtis NP; Beto Ozuna MD~ Examination: CT lumbar spine, without contrast. 2-D sagittal reconstructions. 2-D coronal reconstructions. 3-D reconstructions. Date and time of exam:January 22, 2025 1634 hrs. Comparison December 13, 2024 Indications: Diagnosis multiple myeloma, lower back pain this week CTDI: vol (mGy):22.6 DLP: (mGycm):712 Technique: Multiple 1.25 mm axial sections of the lumbar spine have been obtained. 2-D sagittal and coronal reconstructions have been obtained. 3-D reconstructions have been obtained. Low dose protocols were performed. One or more of the following dose reduction techniques were used; automated exposure control, adjustment of the mA and/or KV according to patient size, use of iterative reconstruction technique. Findings: All of the vertebral bodies are replaced by osteolytic lesions, stable compressions L3 and L5 compared with December 13, 2024 Advanced disc narrowing L5-S1 No new fractures Impression: Again noted widespread osteolytic lesions throughout all visualized lumbar vertebral bodies, consistent with the patient's diagnosis of multiple myeloma Stable pathologic compressions L3 and L5 compared with December 13, 2024 Dictated By: Beto Ozuna MD Signed By: <Electronically signed by Beto Ozuna MD in OV> 01/22/25 1734 [facility] Signed Patient: CHARANJIT AMARO [facility] Record#: [id number] Birthdate: 1970 Age/Sex: 54 / M Location: [facility] Attending Dr: Ordering Physician: Curtis Culp NP, NP Date of Service: 01/22/25 Procedure(s): CT thoracic spine wo con Accession Number(s): [id number] cc: Curtis Culp NP, NP; Beto Ozuna MD~ Examination: CT thoracic spine, without contrast. 2-D sagittal reconstructions. 2-D coronal reconstructions. 3-D reconstructions. Date and time of exam:January 22, 2025 1631 hrs. Indications: Upper back pain beginning one week ago CTDI: vol (mGy):24 DLP: (mGycm):959 Technique: Multiple 1.25 mm axial sections of the thoracic spine without intravenous contrast have been obtained. 2-D sagittal and coronal reconstructions have been obtained. 3-D reconstructions have been obtained. Low dose protocols were performed. One or more of the following dose reduction techniques were used; automated exposure control, adjustment of the mA and/or KV according to patient size, use of iterative reconstruction technique. Findings: Severe osteopenia All visualized osseous structures including thoracic vertebral bodies are replaced by numerous osteolytic lesions Acute compression fracture T5, mild depression superior endplate, reduction in height less than 10% Impression: All visualized thoracic vertebral bodies are not replaced by numerous osteolytic lesions, differential would include widespread osseous metastatic disease, round cell tumors such as multiple myeloma Consider MRI thoracic spine post contrast follow-up Mild acute compression fracture T5 Dictated By: Beto Ozuna MD Signed By: <Electronically signed by Beto Ozuna MD in OV> 01/22/25 1731 [facility] Signed Patient: CHARANJIT AMARO. Record#: [id number] Birthdate: 1970 Age/Sex: 54 / M Location: [facility] Attending Dr: Ordering Physician: Vandana Jimenez (BRITTNEY)Jerrod Date of Service: 01/22/25 Procedure(s): CT cervical spine wo con Accession Number(s): [id number] cc: Beto Ozuna MD; Vandana Jimenez (BRITTNEY),Jerrod LUGO; Anthony Prabhakar MD~ Examination: CT cervical spine without contrast 2-D sagittal reconstructions 2-D coronal reconstructions 3-D reconstructions. Exam date and time:January 22, 20252026 hrs. Indications: Patient fell today with injury to the neck, neck pain CTDI:vol (mGy) 8.33 DLP: (mGycm) 198 Technique: Multiple 2 mm axial sections of the cervical spine have been obtained. The coronal and sagittal reconstructions have been obtained. 3-D reconstructions have been obtained. Low dose protocols were performed. One or more of the following dose reduction techniques were used; automated exposure control, adjustment of the mA and/or KV according to patient size, use of iterative reconstruction technique. Findings: Axial sections demonstrate intact base of the skull. C1 exhibit satisfactory relationship to the odontoid. No acute cervical vertebral body fracture seen. Alignment posterior spinous processes satisfactory. Multiple osteolytic lesions throughout all visualized osseous structures Impression: No acute cervical fracture. Widespread osteolytic lesions throughout all visualized osseous structures are Dictated By: Beto Ozuna MD Signed By: <Electronically signed by Beto Ozuna MD in OV> 01/22/252108 [facility] Signed Patient: CHARANJIT AMARO Record#: [id number] Birthdate: 1970 Age/Sex: 54 / M Location: [facility] Attending Dr: Ordering Physician: Vandana PFEIFFER),Jerrod LUGO Date of Service: 01/22/25 Procedure(s): CT head/brain wo con Accession Number(s): [id number] cc: Beto Ozuna MD; Vandana PFEIFFER),Jerrod LUGO; Anthony Prabhakar MD~ Examination: CT brain head without contrast. 2-D sagittal coronal reconstructions Date and time of exam: Orthopedic plate and 18/03/20252026 hrs. Indications: Onset dizziness today CTDI: vol (mGy):50.4 DLP: (mGycm):1005 Technique: Multiple CT axial sections of the brain have been obtained, 5 mm slice thickness. Contrast has not been administered. 2-D sagittal, coronal reconstructions have been obtained Low dose protocols were performed. One or more of the following dose reduction techniques were used; automated exposure control, adjustment of the mA and/or KV according to patient size, use of iterative reconstruction technique. Findings: No significant ventricular enlargement. Old infarct left cerebellar hemisphere Intra-axial or extra-axial hemorrhage density is not seen. No mass effect or midline shift Basal cisterns are not remarkable. Fourth ventricle is midline. Cranial vault intact. Impression: Negative for acute hemorrhage, mass effect or midline shift Advise clinical correlation follow-up accordingly Dictated By: Beto Ozuna MD Signed By: <Electronically signed by Beto Ozuna MD in OV> 01/22/252110 Medications / Prescriptions Medications or Prescriptions considered but not ordered:: none Medication administrations:: Medication Administration History Discontinued Medications Hydrocodone Bitart/Acetaminophen (Hydrocodone/Apap 10/325 Tab) 1 tab PO X1 ONE Stop: 01/22/25 16:18 Last Admin: 01/22/25 17:06 Dose: Not Given Documented By: KF Non-Admin Reason: Patient Refused Dexamethasone Sodium Phosphate (Dexamethasone Sod Phos Inj 10 Mg/Ml Vial) 10 mg IM X1 ONE Stop: 01/22/25 17:01 Last Admin: 01/22/25 17:06 Dose: 10 mg Documented By: ABDOULAYE Ketorolac Tromethamine (Ketorolac Inj 30 Mg/Ml Vial) 30 mg IM X1 ONE Stop: 01/22/25 16:18 Last Admin: 01/22/25 17:06 Dose: Not Given Documented By: ABDOULAYE Non-Admin Reason: Patient Refused see above Consultations Consultation(s) initiated? (list below): No Diagnosis Differential diagnosis back pain/injury: other (CVA, metastases, generalized weakness, pathologic fracture) Most likely diagnosis given after review of the tests above:: see below Admission Indicated Admission indicated?: not indicated Admission Request Was there a request for admission?: No Disposition Plan Disposition Plan: Discharge Discharge Attestation Discharge Attestation: The patient and all family members were given an opportunity to ask questions and understood the discharge instructions. Discharge instructions specifically effects, indications for sooner follow up or return to the emergency department, and the expected course of current diagnosis. Patient condition: Stable Discharge Plan Plan Patient Disposition: HOME (Self Care) Prescriptions/Referrals Prescriptions/Med Rec: No Action oxycodone 5 mg Capsule 5 mg PO Q6H PRN (Reason: Pain) ibuprofen 600 mg tablet 600 mg PO Q6H PRN (Reason: pain) Qty: 30 0RF hydrocodone-acetaminophen 5-325 mg tablet See Rx Instructions .ROUTE .COMPLEX MDD 8 PRN (Reason: pain) Qty: 20 0RF Rx Instructions: 1-2 tabs q 6 hours Referrals: Anthony Prabhakar MD [Primary Care Provider] - In 1 week Problem List Clinical Impression: Back pain, Multiple myeloma Patient/Caregiver Discharge Instructions Education Materials: ED Back Pain (Acute or Chronic) Additional Instructions: Follow up with your oncologist as scheduled Print Language: English Stand Alone Forms: [facility] Award Info., Patient Portal Info Letter
[2025-01-22 23:31] VITALS: BP 115/64; PULSE 46; RESP 18; TEMP 36.3; O2SAT 99
== END 2025-01-22 23:42 | disposition home or self-care (01) ==
PROVIDERS: Nurse Practitioner Primary Care; Emergency Provider Emergency Medicine; PCP Family Medicine
DX: M54.50 Low back pain, unspecified (principal); C90.00 Multiple myeloma not having achieved remission; E11.9 Type 2 diabetes mellitus without complications; I10 Essential (primary) hypertension; E78.5 Hyperlipidemia, unspecified
CPT/HCPCS: 36415; 70450; 72125; 72128; 72131; 80053; 85025; 96372; 99284; J1100

== ENCOUNTER 2025-04-22 14:32 | Emergency (ER) | payer MEDICAID, SELFPAY ==
[2025-04-22 14:34] VITALS: BMI 24.3
[2025-04-22 14:55] VITALS: BP 133/88; PULSE 90; RESP 18; TEMP 36.8; O2SAT 100
--- NOTE | 2025-04-22 14:59 | XR_ITS ---
Examination: CT abdomen and pelvis without contrast. Coronal 3-D reconstructions. Sagittal 2-D reconstructions. Date and time of exam:April 22, 2025 1513 hours INDICATIONS: Abdominal pain today, history paralysis from the waist down, diagnosis multiple myeloma CTDI: vol (mGy): 9.8 DLP: (mGycm): 639 Technique: Axial images of the abdomen have been obtained, 3 mm slice thickness Intravenous contrast material has not been administered. Low dose protocols were performed. One or more of the following dose reduction techniques were used; automated exposure control, adjustment of the mA and/or KV according to patient size, use of iterative reconstruction technique. Findings: Left lower lobe pneumonia No focal liver or splenic lesions Edematous thickened gallbladder wall No pancreatic or adrenal mass Perinephric stranding, marked around the right kidney The entire colon shows diffuse wall thickening and prominent inflammatory change including the rectum on this noncontrast study Mild ascites Urinary bladder is contracted around a Cr catheter with marked urinary bladder wall thickening All of the osseous structures exhibit osteolytic lesions consistent with the patient's diagnosis of multiple myeloma Status post operative reduction internal fixation pathologic fracture left hip IMPRESSION: Recommend hepatobiliary sonography to confirm acute acalculus cholecystitis Suspicious for right pyelonephritis on this noncontrast study Severe diffuse colitis pattern Severe cystitis pattern Widespread osteolytic lesions consistent with patient's diagnosis of multiple myeloma
[2025-04-22 15:52] LABS: Basophils % (Auto) 0 % (0-2.5); Eosinophils % (Auto) 0 % (0-10); Hematocrit 26.9 % (41.0-53.0); Hemoglobin 9.6 g/dL (13.5-16.0); Immature Granulocytes % (Auto) 4 % (0-0); Immature Granulocytes Auto 0.09 Thou/mm3 (0.00-0.00); Lymphocytes # (Auto) 0.5 Thou/mm3 (1.0-4.8); Lymphocytes % (Auto) 23 % (10-50); Mean Corpuscular HGB Conc 35.7 g/dl (31.0-37.0); Mean Corpuscular Hemoglobin 31.2 pg (25.0-35.0); Mean Corpuscular Volume 87 fL (80-100); Monocytes # (Auto) 0.2 Thou/mm3 (0.0-0.8); Monocytes % (Auto) 7 % (0-12); Neutrophils # (Auto) 1.5 Thou/mm3 (1.8-7.7); Neutrophils % (Auto) 66 % (37-80); Nucleated Red Blood Cell # 0.02 Thou/mm3 (0.00-0.00); Nucleated Red Blood Cell % 1 /100 WBC (0); RDW Standard Deviation 62.2 fL (35.1-43.9); Red Blood Count 3.08 Miln/mm3 (4.50-5.90)
[2025-04-22 16:12] LABS: Alanine Aminotransferase 35 U/L (10-49); Albumin, Serum 3.3 gm/dL (3.5-5.0); Albumin/Globulin Ratio 1.9 (1.2-2.2); Alkaline Phosphatase 80 U/L (46-116); Anion Gap 11 (7-16); Aspartate Amino Transferase 24 U/L (0-34); BUN/Creatinine Ratio 30 Ratio (12-20); Bilirubin,Total 0.5 mg/dL (0.3-1.2); Blood Urea Nitrogen 15 mg/dL (9-23); Calcium 8.4 mg/dL (8.3-10.6); Carbon Dioxide 23.8 mMol/L (20.0-31.0); Chloride 96 mMol/L (98-107); Creatinine (Component) 0.5 mg/dL (0.6-1.3); Globulin 1.7 gm/dL (2.3-3.5); Glucose 236 mg/dL (74-106); Lipase 45 U/L (12-53); Osmolality,Calculated 271 (275-295); Potassium 3.8 mMol/L (3.4-5.1); Sodium 131 mMol/L (136-145); eGFR > 60 See Note
--- NOTE | 2025-04-22 16:20 | PC.NURSE ---
no answer x 1 at 1619. checked outside and lobby.
[2025-04-22 16:23] LABS: Platelet Count 35 Thou/mm3 (140-440); Slide Review Platelets confirmed; White Blood Count 2.3 Thou/mm3 (3.8-10.6)
--- NOTE | 2025-04-22 16:52 | PD.EDRME ---
Rapid Medical Screening Exam RME Arrival date/time: 04/22/25 14:32 Chief Complaint: Nausea/Vomiting/Diarrhea Time Seen by Provider: 04/22/25 14:42 Vital signs: Vital Signs Temperature 98.2 F 04/22/25 14:55 Pulse Rate 90 04/22/25 14:55 Respiratory Rate 18 04/22/25 14:55 Blood Pressure 133/88 H 04/22/25 14:55 Pulse Oximetry (%) 100 04/22/25 14:55 Oxygen Delivery Method Room Air 04/22/25 14:55 E Narrative: this is a case of 55 year old male hx of multiple myeloma came in with voitting and diarrhea for 2 days recently d/c last week
--- NOTE | 2025-04-22 17:14 | PD.EDRME ---
Rapid Medical Screening Exam RME Arrival date/time: 04/22/25 14:32 this is a case of 55 year old male hx of multiple myeloma came in with vomiting and diarrhea for 2 days recently d/c last week Chief Complaint: Nausea/Vomiting/Diarrhea Time Seen by Provider: 04/22/25 14:42 Vital signs: Vital Signs Temperature 98.2 F 04/22/25 14:55 Pulse Rate 90 04/22/25 14:55 Respiratory Rate 18 04/22/25 14:55 Blood Pressure 133/88 H 04/22/25 14:55 Pulse Oximetry (%) 100 04/22/25 14:55 Oxygen Delivery Method Room Air 04/22/25 14:55 RME Narrative: this is a case of 55 year old male hx of multiple myeloma came in with voitting and diarrhea for 2 days recently d/c last week
--- NOTE | 2025-04-22 17:32 | XR_ITS ---
Examination: Abdomen sonogram, Limited Date and time of exam: April 22, 2025, 1827 hours INDICATIONS: Diarrhea beginning 3 days ago Technique: Real-time romero scale transabdominal sonographic images of the upper abdomen obtained. Findings: Negative for gallstones There is fluid adjacent to the gallbladder wall although the gallbladder wall measures 0.3 cm Common bile duct 0.4 cm Pancreatic head 2.6 cm Liver 14.5 cm lobular contour mild ascites Normal hepatopedal portal venous flow Patent IVC IMPRESSION: Cirrhosis versus primary hepatocellular disease Mild ascites with probable ascitic fluid adjacent to the gallbladder Negative for cholelithiasis
[2025-04-22 17:37] LABS: Collection Type, Urine Catheter; Squamous Epithelial Cell,Urine 0 /hpf (0-5)
[2025-04-22 17:53] LABS: Bilirubin,Urine Negative (Negative); Blood,Urine Trace (Negative); Clarity,Urine Clear (Clear/Hazy); Color,Urine Lt-Yellow (Lt Yel-Yel); Glucose, Urine 2+ (Negative); Ketones,Urine Negative (Negative); Leukocyte Esterase,Urine Negative (Negative); Nitrite,Urine Negative (Negative); Protein,Urine Trace (Neg - Trace); RBC,Urine 1 /hpf (0-3); Specific Gravity,Urine 1.012 (1.001-1.035); Urobilinogen,Urine Negative mg/dL (0.0-1.0); WBC,Urine 1 /hpf (0-5)
[2025-04-22 18:33] VITALS: BP 153/86; PULSE 59; RESP 18; TEMP 36.7; O2SAT 99
--- NOTE | 2025-04-22 18:38 | PC.NURSE ---
PTS ASKED ABOUT IGLESIAS CHANGE, THIS RN ASKED PROVIDER. PROVIDER TOLD THIS RN FOR NOW WE ARE HOLDING OFF, IGLESIAS IS DRAINING PROPERLY. UPDATED
--- NOTE | 2025-04-22 22:06 | EDNOTE_ITS ---
ED General RME/HPI General Chief complaint: Nausea/Vomiting/Diarrhea Stated complaint: DIARRHEA X3 DAYS Time Seen by Provider: 04/22/25 14:42 Arrival date/time: 04/22/25 14:32 CC: Nausea vomiting diarrhea HPI onset today patient was just discharged from [facility] after lengthy stay patient has a history of multiple myeloma. Is awake alert [place]-speaking only. Currently denies fever chills chest pain shortness of breath or difficulty breathing. states the patient has multiple doses of IV antibiotics in the last 3 months. RME / HPI RME / HPI narrative: 04/22/25 14:32 this is a case of 55 year old male hx of multiple myeloma came in with vomiting and diarrhea for 2 days recently d/c last week Related Data Home Medications ?Medication ?Instructions ?Recorded ?Confirmed oxycodone 5 mg capsule 5 mg PO Q6H PRN Pain 4 10/10/24 Previous Rx's ?Medication ?Instructions ?Recorded ibuprofen 600 mg tablet 600 mg PO Q6H PRN pain #30 t abs 12/13/24 hydrocodone 5 mg-acetaminophen 325 See Rx Instructions .Route 12/14/24 mg tablet .COMPLEX PRN pain #20 tabs ciprofloxacin HCl 500 mg tablet 500 mg PO BID #14 tabs 04/22/25 (Cipro) dicyclomine 20 mg tablet 20 mg PO BID #10 tabs metronidazole 500 mg tablet 500 mg PO BID 7 days #14 t abs 04/22/25 Allergies Allergy/AdvReac Type Severity Reaction Status Date / Time No Known Allergies Allergy Verified 10/10/24 14:51 Review of Systems Review of Systems Narrative Review of Systems: GEN: No fever, no chills, no weight loss EYES: No discharge, no visual changes, no pain HEENT: No ear pain, no congestion, no sore throat PULM: No shortness of breath, no cough, no congestion CV: No chest pain, no dyspnea on exertion, no palpitations GI: + nausea, + vomiting, + diarrhea, no pain, no constipation : No frequency, no urgency, no dysuria MUSC/SKEL: No joint pain, no back pain SKIN: No rash PSYCH: No hallucinations, no depression HEME/LYMPH: No easy bleeding or bruising tendencies NEURO: No weakness, no headache Past Medical History Past Medical History NEUROLOGIC: Negative Neurological Disorders, Cerebrovascular Accident or Seizures CARDIAC: Positive Cardiac Disorders, Hypercholesterolemia and Hypertension (controlled at this time, not taking meds any more); Negative Atrial Fibrillation or Congestive Heart Failure RESPIRATORY: Negative Chronic Obstructive Pulmonary Disease (COPD), Asthma, Pneumonia, Sleep Apnea, Cough, Sputum Production, Wheezing, Smoking, Smoking Cessation Counseling, Smoking Exposure, Tobacco Use or Clubbing GASTROINTESTINAL: Positive Gastrointestinal Disorders and Gastroesophageal Reflux Disease; Negative Hepatitis GENITOURINARY: Positive Genitourinary Disorders (urgency); Negative Renal Disease REPRODUCTIVE: Negative Testicular Cancer MUSCULOSKELETAL: Positive Musculoskeletal Disorders, Arthritis and Fractures (hip fx left); Negative Carpal Tunnel Syndrome ENT: Positive Cataracts ENDOCRINE: Positive Endocrine Disorders and Diabetes Mellitus Type 2; Negative Diabetes Mellitus Type 1 HEMATOLOGIC: Negative Blood Disorders or Anemia PSYCHO/SOCIAL: Positive Depression and Anxiety OTHER HISTORY: Positive Hospitalization, Chemotherapy (2 days ago), Radiation Therapy (last week) and Cancer (multiple myeloma); Negative Autoimmune Disease, Down Syndrome, Developmental Delay, Shingles, Falls, Blood Transfusions, Blood Transfusion Reaction, Anesthesia Reactions, Organ Transplant, Hyperbaric Therapy, MRSA, VRSA, Vancomycin-Resistant Enterococci, Human Immunodeficiency Virus (HIV), Chicken Pox, Measles, Mumps, R ubella (Macedonian Measles), Pertussis, Clostridium Difficile or Testicular Cancer Family History FAMILY HISTORY: Positive Family Cancer; Negative Family Psychiatric Problems, Family Respiratory Disorders, Family Cardiac Disorders, Family Gastrointestinal Problems, Family Surgery or Family Anesthesia Reaction Surgical History SURGICAL: Negative Pacemaker, Endocrine Surgery, Abdominal Surgery, Nephrectomy, Transurethral Resection, Joint Replacement, Amputation, Open Reduction Internal Fixation, Arthroscopy, Neurologic Surgery, Brain Shunt, Vasectomy or Organ Transplant Social History SMOKING STATUS: Never smoker SECOND HAND EXPOSURE: No ED Exam Narrative Physical exam: [General: Obese not in cot no acute distress Head normocephalic HEENT: Within acceptable limits Neck is supple nontender Chest equal chest rise nontender to palpation Respiratory: Clear to auscultation no wheezes crackles or rubs CV: Rate rhythm is regular no murmurs rubs or clicks Abdomen is distended secondary to body habitus soft nontender no masses positive bowel sounds all 4 quadrants Back: No CVA tenderness no spinous process tenderness from cervical spine thoracic and lumbar spine Skin: Buttock decubitus , intact no petechiae rash induration ulceration or crepitus Extremities: Moving all extremity against resistance cap refill less than 2 seconds neurosensory intact Neuro: Awake alert oriented x3 Glascow coma 15 no focal deficits] Course Course Course Narrative: Reevaluation of this patient at 2200, the patient has no episodes of nausea vomiting and 2 episodes of small very loose formed stool that were sent off for C. difficile. pt case disucssed with Dr Shea prior to disposition Quality Measures none Orders Category Date Time Status Cr [Urinary Catheter] QS Care 04/22/25 14:59 Active Saline [Insert IV] NOW Care 04/22/25 22:[address] abdomen pelvis wo con Stat Exams 04/22/25 14:59 Completed US gall bladder Stat Exams 04/22/25 17:32 Completed CBC Stat Lab 04/22/25 15:36 Completed CMP [Comprehensive Metabolic Panel] Stat Lab 04/22/25 15:36 Completed Lipase Stat Lab 04/22/25 15:36 Completed Urinalysis Stat Lab 04/22/25 17:30 Completed c diff [Clostridium Difficile PCR] Stat Lab 04/22/25 20:00 Received Sodium Chloride 0.9% 1000 ml [Ns] 1,000 ml Med 04/22/25 22:10 Active IV 999 mls/hr Vital Signs Vital signs: Vital Signs Temperature 98.2 F 04/22/25 14:55 Pulse Rate 90 04/22/25 14:55 Respiratory Rate 18 04/22/25 14:55 Blood Pressure 133/88 H 04/22/25 14:55 Pulse Oximetry (%) 100 04/22/25 14:55 Oxygen Delivery Method Room Air 04/22/25 14:55 Discharge Plan Plan Patient Disposition: HOME (Self Care) Patient condition on transfer: Stable Prescriptions/Referrals Prescriptions/Med Rec: New ciprofloxacin HCl [Cipro] 500 mg tablet 500 mg PO BID Qty: 14 0RF metronidazole 500 mg tablet 500 mg PO BID 7 Days Qty: 14 0RF dicyclomine 20 mg tablet 20 mg PO BID Qty: 10 0RF No Action oxycodone 5 mg Capsule 5 mg PO Q6H PRN (Reason: Pain) ibuprofen 600 mg tablet 600 mg PO Q6H PRN (Reason: pain) Qty: 30 0RF hydrocodone-acetaminophen 5-325 mg tablet See Rx Instructions .ROUTE .COMPLEX MDD 8 PRN (Reason: pain) Qty: 20 0RF Rx Instructions: 1-2 tabs q 6 hours Referrals: Fernando Chou MD [Physician] - In 1 week No Primary/Family,Physician [Primary Care Provider] - In 1 week Problem List Clinical Impression: Multiple myeloma, Colitis Patient/Caregiver Discharge Instructions Education Materials: Understanding Colitis, ED Vomiting and Diarrhea ... Additional Instructions: Take the medications as prescribed if there is worsening in symptoms in spite of the medications return the emergency room for reevaluation. Print Language: [place] Stand Alone Forms: Gisele Award Info., Patient Portal Info Letter, Work/School Release PA/SHOESHINER Supervising Physician PA/SHOESHINER Supervising Physician: Ricci Valentine ENP [facility] Clinical Information Provided by patient Medical Records Reviewed [facility] Meds/Rx Considered, not Ordered None Labs/Rad/Tests considered, not Ordered None EKG EKG not done Lab Interpretation Lab(s) interpretation(s): CBC shows pancytopenia with WBCs of 2.3 H&H of 9.6 and 26.9 respectively with platelets at 35 CMP shows sodium 131 potassium 3.8 chloride of 96, dioxide 23.8 gap 11 creatinine 0.5 glucose of 236 no transaminitis or T. bili elevation. Low total protein Urine shows 2+ glucose no other acute finding Was informed at 2200 the C. difficile will not be run [facility] Imaging Provider imaging interpretation(s): CT shows mild diffuse colitis, and a question of pyelonephritis note: The patient has urine is unremarkable no leukocytosis no fever Radiology reports / interpretation(s): At the time of this dictation I was informed that C. difficile will continue to be pending until tomorrow morning. Patient will be discharged home on Cipro Flagyl and Bentyl to follow-up with his primary care provider if is worsening of symptoms he can return the emergency room for reevaluation. Medication Administration(s) Medication Administration History Sodium Chloride (Ns) 1,000 mls @ 999 mls/hr IV .Q1H1M ONE Stop: 04/22/25 23:10 Diagnosis Differential diagnosis: Colitis, diverticulitis, C. difficile Dispositon Disposition: Discharge Home
[2025-04-22] MEDS: SODIUM CHLORIDE 0.9% 1000 ML 1,000 ML 999 ML IV (22:22)
[2025-04-22] MEDS: metroNIDAZOLE 250 MG TABLET 500 MG PO (23:35)
[2025-04-22] MEDS: CIPROFLOXACIN HCL 250 MG TABLET 500 MG PO (23:35)
[2025-04-22 23:58] VITALS: BP 148/84; PULSE 50; RESP 17; O2SAT 98
== END 2025-04-23 | disposition home or self-care (01) ==
PROVIDERS: Nurse Practitioner Family; Emergency Provider Family Medicine
DX: C90.00 Multiple myeloma not having achieved remission (principal); K52.9 Noninfective gastroenteritis and colitis, unspecified; D61.818 Other pancytopenia
CPT/HCPCS: 36415; 74176; 76705; 80053; 81001; 83690; 85025; 87493; 96360; 99284; J7030; A9270

== ENCOUNTER 2025-04-28 12:23 | Inpatient (IN) | payer MEDICAID, SELFPAY ==
[2025-04-28] VITALS (96 sets, daily range): BP systolic 00–194; BP diastolic 0–115; PULSE 67–140; RESP 15–33; TEMP 35.1–40.8; O2SAT 31–100; BMI 23.8
--- NOTE | 2025-04-28 12:27 | PD.EDCPR ---
ED CPR RME/HPI General Chief Complaint: Cardiac Arrest/CPR Stated Complaint: CHERYL ERICKSON, AMS Time Seen by Provider: 04/28/25 12:23 Arrival date/time: 04/28/25 12:23 RME / HPI RME / HPI narrative: 55 year old male presents to the ED as a code blue today. Per medics report, family found patient unresponsive in bed. Reportedly was last known well, awake, and conversant at 6 AM. On their arrival noted patient to be GCS of 3, hypotensive 46/25. Started on IV Lactated Ringers, intubated with i-Gel supraglottic airway, and manually ventilated. Prehospital BS 181. No CPR performed. On arrival to ED @ 12:22 patient lost pulses and cheryl erickson called overhead. Per EMR review, patient has history of multiple myeloma with osteolytic lesion, hypertension, diabetes, left hip fracture. Related Data Home Medications ?Medication ?Instructions ?Recorded ?Confirmed oxycodone 5 mg capsule 5 mg PO Q6H PRN Pain 03/26/24 10/10/24 Previous Rx's ?Medication ?Instructions ?Recorded ibuprofen 600 mg tablet 600 mg PO Q6H PRN pain #30 tabs 12/13/24 hydrocodone 5 mg-acetaminophen 325 See Rx Instructions .Route 12/14/24 mg tablet .COMPLEX PRN pain #20 tabs ciprofloxacin HCl 500 mg tablet 500 mg PO BID #14 tabs 04/22/25 (Cipro) dicyclomine 20 mg tablet 20 mg PO BID #10 tabs 04/22/25 Allergies Allergy/AdvReac Type Severity Reaction Status Date / Time No Known Allergies Allergy Verified 10/10/24 14:51 Review of Systems Review of Systems ROS Unobtainable: other (Unobtainable due to acuity) Past Medical History Past Medical History CARDIAC: Positive Cardiac Disorders, Hypercholesterolemia and Hypertension (controlled at this time, not taking meds any more) GASTROINTESTINAL: Positive Gastrointestinal Disorders and Gastroesophageal Reflux Disease GENITOURINARY: Positive Genitourinary Disorders (urgency) MUSCULOSKELETAL: Positive Musculoskeletal Disorders, Arthritis and Fractures (hip fx left) ENT: Positive Cataracts ENDOCRINE: Positive Endocrine Disorders and Diabetes Mellitus Type 2 PSYCHO/SOCIAL: Positive Depression and Anxiety OTHER HISTORY: Positive Hospitalization, Chemotherapy (2 days ago), Radiation Therapy (last week) and Cancer (multiple myeloma) Family History FAMILY HISTORY: Positive Family Cancer Social History SMOKING STATUS: Never smoker SECOND HAND EXPOSURE: No ED Exam Narrative Physical exam: GENERAL APPEARANCE: Unresponsive, CPR in progress; pale HEENT: Normocephalic, atraumatic; anascoria rigth pupil 4mm and left pupil 3mm and sluggish, lips cyanotic; copius amounts of feculent vomit in mouth NECK: Supple LUNGS: No spontaneous respirations, ventilated via BVM, breath sounds clear bilaterally with ventilation HEART: No pulse, no cardiac sounds, good pulse with CPR ABDOMEN: Mildly distended; soft EXTREMITIES:? ecchymosis to the left forearm; cyanotic; mottled NEUROLOGIC: Obtunded, unresponsive, no response to painful stimuli SKIN: Cool, mottled, cyanotic; pale Course Course Course Narrative: Please refer to nurses code sheet for medication administration Quality Measures none Orders Category Date Time Status CT Screening NOW Care 04/28/25 14:17 Completed Scientologist NOW Care 04/28/25 12:56 Completed EKG (ED ONLY) *Do not use* NOW Care 04/28/25 12:56 Completed Intubation NOW Care 04/28/25 12:[address] abdomen pelvis w con Stat Exams 04/28/25 14:[address] head/brain wo con Stat Exams 04/28/25 14:17 Completed EKG (ED Only) Stat Exams 04/28/25 12:56 Ordered XR chest 1V portable Stat Exams 04/28/25 12:56 Completed ABG [Arterial Blood Gas] Stat Lab 04/28/25 13:17 Completed B-Type Natriuretic Peptide Stat Lab 04/28/25 12:36 Completed Blood Culture (Lab) Stat Lab 04/28/25 12:36 Completed CBC Stat Lab 04/28/25 12:36 Completed CK [Creatine Kinase] Stat Lab 04/28/25 13:48 Completed COVID-19 Antigen (In-House) Stat Lab 04/28/25 13:30 Completed Comprehensive Metabolic Panel Stat Lab 04/28/25 12:36 Completed Lactate (Lactic Acid) Stat Lab 04/28/25 12:36 Completed Lactic Acid, 3 HR Stat Lab 04/28/25 16:37 Completed Lipase Stat Lab 04/28/25 12:36 Completed Magnesium Stat Lab 04/28/25 12:36 Completed Partial Thromboplastin Time Stat Lab 04/28/25 12:36 Completed Path Review Blood Smear Stat Lab 04/28/25 12:36 Completed Procalcitonin Stat Lab 04/28/25 12:36 Completed Prothrombin Time with INR Stat Lab 04/28/25 12:36 Completed Sputum Culture and Gram Stain Stat Lab 04/28/25 14:10 Completed Troponin I Stat Lab 04/28/25 12:36 Completed Acetaminophen Ivpb [Ofirmev Inj] Med 04/28/25 13:29 Discontinued 1,000 mg in 100 ml IV Q6H Acetaminophen Ivpb [Ofirmev Inj] Med 04/28/25 13:32 Discontinued 1,000 mg in 100 ml IV X1 EPINEPHrine in NS 4 MG IVPB [Adrenalin/NS 4 MG IVPB] Med 04/28/25 12:30 Discontinued 4 mg in 250 ml IV .STK-MED EPINEPHrine in NS 4 MG IVPB [Adrenalin/NS 4 MG IVPB] Med 04/28/25 12:34 Discontinued 4 mg in 250 ml IV 0.05 mcg/kg/min Magnesium Sulfate 2 GM Ivpb [Magnesium Sulfate Ivpb] Med 04/28/25 14:00 Discontinued 2 gm in 50 ml IV X1 Norepinephrine/NS 16mg/250ml [Levophed in NS 16mg/250ml Med 04/28/25 12:38 Discontinued ] 16 mg in 250 ml IV .STK-MED Norepinephrine/NS 16mg/250ml [Levophed in NS 16mg/250ml Med 04/28/25 12:45 Discontinued ] 16 mg in 250 ml IV 0.05 mcg/kg/min Piper/Tazo 3.375 gm Premix [Zosyn] Med 04/28/25 12:59 Discontinued 3.375 gm in 50 ml IV X1 Sodium Chloride 0.9% 1000 ml [Ns] 1,000 ml Med 04/28/25 12:56 Discontinued IV 999 mls/hr Sodium Chloride 0.9% 1000 ml [Ns] 1,000 ml Med 04/28/25 13:31 Discontinued IV 999 mls/hr Sodium Chloride Rt Britta 10% [NS Rt Britta 10%] Med 04/28/25 13:59 Discontinued 5 ml INH X1 ONE Vancomycin/Ns 1 gm Ivpb 200 ml Med 04/28/25 13:00 Discontinued IV X1 fentaNYL INJ [Sublimaze Inj] Med 04/28/25 14:36 Discontinued 100 mcg IVP X1 ONE Sputum Induction PRN RT 04/28/25 14:00 Ordered Volume Ventilator Routine RT 04/28/25 12:46 Active Vital Signs Vital signs: Vital Signs Pulse Rate 139 H 04/28/25 12:39 Blood Pressure 67/41 L 04/28/25 12:39 Cardiac Arrest / CPR MDM Narrative MDM Narrative:: Mely Bradley am scribing for and in the presence of Dr. Flores. Patient data External records reviewed:: [facility] previous records (I reviewed ED visit on 04/22/2025, here for diarrhea and diagnosed with colitis. Sent home with Luiro, yl, and Brittany. ) Clinical information provided by:: EMS Social determinants that could affect healthcare access:: none Patient has the following chronic illnesses:: multiple myeloma with osteolytic lesion, hypertension, diabetes, left hip fracture. How is presenting disease/condition affected by chronic disease/condition?: exacerbated by Evaluation data The following diagnostics were reviewed and interpreted by me:: lab results and radiology exam(s) Lab and/or radiology exams considered but not ordered:: None Interpretation Summary: Ordering Physician: Eri Flores MD Date of Service: 04/28/25 Procedure(s): XR chest 1V portable Accession Number(s): [id number] cc: Beto Ozuna MD; Eri Flores MD; Anthony Prabhakar MD~ Examination: AP chest single view Technique one AP portable supine chest single view Date and time: April 28, 2025 1358 hrs. Comparison March 24, 2024 Indications: Status post cardiac arrest, hypoxic respiratory failure today Findings: Mild enlargement cardiac contour Tracheal tube tip 6 cm above edith Orogastric tube tip in the distal stomach Mild vascular congestion No aspiration pneumonia Impression: No aspiration pneumonia or pulmonary edema Dictated By: Beto Ozuna MD Signed By: <Electronically signed by Beto Ozuna MD in OV> 04/28/25 1419 Medications / Prescriptions Medications or Prescriptions considered but not ordered:: None Medication administrations:: Medication Administration History Discontinued Medications Acetaminophen (Acetaminophen Supp 650 Mg Supp) 650 mg WA Q6H PRN PRN Reason: FEVER > 100.4 Stop: 05/28/25 17:14 Dextrose (Dextrose 50%-Water Inj 50 Ml Syringe) Confirm Administered Dose 50 ml IV .STK-MED ONE Stop: 04/28/25 19:18 Last Admin: 04/28/25 20:06 Dose: Not Given Documented By: CLT Non-Admin Reason: Duplicate Medication on eMAR Dextrose (Dextrose 50%-Water Inj 50 Ml Syringe) 50 ml IV X1 ONE Stop: 04/28/25 19:21 Last Admin: 04/28/25 19:19 Dose: 50 ml Documented By: CLT Dextrose (Dextrose 50%-Water Inj 50 Ml Syringe) 25 ml IV Q15MIN PRN PRN Reason: BG 50-70 responsive npo pt Stop: 05/28/25 22:27 Dextrose (Dextrose 50%-Water Inj 50 Ml Syringe) 50 ml IV Q15MIN PRN PRN Reason: BG <50 OR BG <70 & pt unresponsive Stop: 05/28/25 22:27 Dextrose (Dextrose 50%-Water Inj 50 Ml Syringe) 100 ml IV X1 ONE Stop: 04/28/25 22:29 Last Admin: 04/28/25 22:57 Dose: 100 ml Documented By: CLT Epinephrine HCl (Epinephrine Inj 1 Mg/Ml Vial 30ml) Confirm Administered Dose 30 mg IV .STK-MED ONE Stop: 04/28/25 21:46 Last Admin: 04/28/25 22:01 Dose: Not Given Documented By: CLT Non-Admin Reason: Duplicate Medication on eMAR Epinephrine HCl (Epinephrine Inj 1 Mg/Ml Vial 30ml) Confirm Administered Dose 30 mg IV .STK-MED ONE Stop: 04/28/25 22:35 Last Admin: 04/28/25 22:54 Dose: Not Given Documented By: CLT Non-Admin Reason: Duplicate Medication on eMAR Famotidine (Famotidine Inj 10 Mg/Ml Vial 2 Ml) 20 mg IVP Q12HR ROBERT Stop: 05/28/25 20:59 Last Admin: 04/28/25 21:36 Dose: 20 mg Documented By: CLT Fentanyl Citrate (Fentanyl Cit Inj 50 Mcg/Ml Amp 2ml) 100 mcg IVP X1 ONE Stop: 04/28/25 14:37 Last Admin: 04/28/25 14:49 Dose: 100 mcg Documented By: RD Filgrastim (Filgrastim Inj (Zarxio) 300 Mcg/0.5 Ml Syringe) 300 mcg SC X1 ONE Stop: 04/28/25 18:16 Last Admin: 04/28/25 18:29 Dose: 300 mcg Documented By: ZP Filgrastim (Filgrastim Inj (Zarxio) 300 Mcg/0.5 Ml Syringe) 300 mcg SC X1 ONE Stop: 04/29/25 09:01 Glucagon (Glucagon Inj 1 Mg Vial) 1 mg IM Q15MIN PRN PRN Reason: BG <70, and no IV access Hydrocortisone Sodium Succinate (Hydrocortisone Sod Succ Inj 100 Mg Vial) 100 mg IV X1 ONE Stop: 04/28/25 17:54 Last Admin: 04/28/25 18:29 Dose: 100 mg Documented By: ZP Hydrocortisone Sodium Succinate (Hydrocortisone Sod Succ Inj 100 Mg Vial) 50 mg IV Q6HR ROBERT Stop: 05/29/25 00:00 Last Admin: 04/28/25 23:18 Dose: 50 mg Documented By: CLT Epinephrine/Sodium Chloride (Adrenalin/Ns 4 Mg Ivpb) 4 mg in 250 mls @ 14.033 mls/hr IV .[id number] PRN; Protocol PRN Reason: per protocol Stop: 05/28/25 12:33 Last Titration: 04/28/25 20:00 Dose: Infused Documented By: Titration: 04/28/25 19:00 Dose: Infused Documented By: Titration: 04/28/25 18:00 Dose: 0.4 mcg/kg/min, 112.265 mls/hr Documented By: DavidP Admin: 04/28/25 17:12 Dose: 0.89 mcg/kg/min, 250 mls/hr Documented By: Titration: 04/28/25 17:07 Dose: Infused Documented By: Titration: 04/28/25 15:55 Dose: 0.36 mcg/kg/min, 101.038 mls/hr Documented By: Titration: 04/28/25 15:50 Dose: 0.36 mcg/kg/min, 101.038 mls/hr Documented By: Titration: 04/28/25 15:45 Dose: 0.36 mcg/kg/min, 101.038 mls/hr Documented By: Titration: 04/28/25 15:40 Dose: 0.34 mcg/kg/min, 95.425 mls/hr Documented By: Titration: 04/28/25 15:35 Dose: 0.32 mcg/kg/min, 89.812 mls/hr Documented By: Titration: 04/28/25 15:30 Dose: 0.3 mcg/kg/min, 84.198 mls/hr Documented By: Titration: 04/28/25 15:15 Dose: 0.3 mcg/kg/min, 84.198 mls/hr Documented By: Titration: 04/28/25 14:55 Dose: 0.3 mcg/kg/min, 84.198 mls/hr Documented By: Titration: 04/28/25 14:39 Dose: 0.28 mcg/kg/min, 78.585 mls/hr Documented By: Titration: 04/28/25 13:15 Dose: 0.26 mcg/kg/min, 72.972 mls/hr Documented By: Titration: 04/28/25 13:09 Dose: 0.26 mcg/kg/min, 72.972 mls/hr Documented By: Titration: 04/28/25 13:04 Dose: 0.24 mcg/kg/min, 67.359 mls/hr Documented By: Titration: 04/28/25 13:01 Dose: 0.22 mcg/kg/min, 61.745 mls/hr Documented By: Titration: 04/28/25 12:50 Dose: 0.2 mcg/kg/min, 56.132 mls/hr Documented By: Admin: 04/28/25 12:39 Dose: 0.1 mcg/kg/min, 28.066 mls/hr Documented By: NIXON Comments: UNABLE TO SCAN Epinephrine/Sodium Chloride (Adrenalin/Ns 4 Mg Ivpb) Confirm Administered Dose 4 mg in 250 mls @ ud IV .STK-MED ONE Stop: 04/28/25 12:31 Last Admin: 04/28/25 13:06 Dose: Not Given Documented By: RD Non-Admin Reason: Duplicate Medication on eMAR Norepinephrine Bitartrate (Levophed In Ns 16mg/250ml) 16 mg in 250 mls @ 3.525 mls/hr IV .Q24H PRN; Protocol PRN Reason: PER protocol Stop: 05/28/25 12:44 Last Titration: 04/29/25 03:36 Dose: Infused Documented By: Admin: 04/29/25 02:25 Dose: 3 mcg/kg/min, 211.517 mls/hr Documented By: Titration: 04/29/25 02:25 Dose: Infused Documented By: Admin: 04/29/25 01:25 Dose: 3 mcg/kg/min, 211.517 mls/hr Documented By: Titration: 04/29/25 01:25 Dose: Infused Documented By: Titration: 04/29/25 01:00 Dose: Infused Documented By: Admin: 04/28/25 23:04 Dose: 3 mcg/kg/min, 211.517 mls/hr Documented By: Titration: 04/28/25 23:04 Dose: Infused Documented By: Admin: 04/28/25 20:14 Dose: 1.5 mcg/kg/min, 105.758 mls/hr Documented By: Titration: 04/28/25 20:14 Dose: Infused Documented By: Titration: 04/28/25 20:00 Dose: 1 mcg/kg/min, 70.506 mls/hr Documented By: Titration: 04/28/25 19:00 Dose: 1 mcg/kg/min, 70.506 mls/hr Documented By: Titration: 04/28/25 18:10 Dose: 0.44 mcg/kg/min, 31.022 mls/hr Documented By: Titration: 04/28/25 18:00 Dose: 0.42 mcg/kg/min, 29.612 mls/hr Documented By: Titration: 04/28/25 17:11 Dose: 0.42 mcg/kg/min, 29.612 mls/hr Documented By: Titration: 04/28/25 17:06 Dose: 0.4 mcg/kg/min, 28.202 mls/hr Documented By: Titration: 04/28/25 15:55 Dose: 0.38 mcg/kg/min, 26.792 mls/hr Documented By: Titration: 04/28/25 15:51 Dose: 0.38 mcg/kg/min, 26.792 mls/hr Documented By: Titration: 04/28/25 15:45 Dose: 0.38 mcg/kg/min, 26.792 mls/hr Documented By: Titration: 04/28/25 15:40 Dose: 0.36 mcg/kg/min, 25.382 mls/hr Documented By: Titration: 04/28/25 15:35 Dose: 0.34 mcg/kg/min, 23.972 mls/hr Documented By: Titration: 04/28/25 15:30 Dose: 0.32 mcg/kg/min, 22.562 mls/hr Documented By: Titration: 04/28/25 15:15 Dose: 0.32 mcg/kg/min, 22.562 mls/hr Documented By: Titration: 04/28/25 14:57 Dose: 0.32 mcg/kg/min, 22.562 mls/hr Documented By: Titration: 04/28/25 14:52 Dose: 0.3 mcg/kg/min, 21.152 mls/hr Documented By: Titration: 04/28/25 14:38 Dose: 0.28 mcg/kg/min, 19.742 mls/hr Documented By: Titration: 04/28/25 14:34 Dose: 0.26 mcg/kg/min, 18.331 mls/hr Documented By: Titration: 04/28/25 13:09 Dose: 0.26 mcg/kg/min, 18.331 mls/hr Documented By: Titration: 04/28/25 13:04 Dose: 0.24 mcg/kg/min, 16.921 mls/hr Documented By: Titration: 04/28/25 13:01 Dose: 0.22 mcg/kg/min, 15.511 mls/hr Documented By: Admin: 04/28/25 12:50 Dose: 0.2 mcg/kg/min, 14.101 mls/hr Documented By: NIXON Norepinephrine Bitartrate (Levophed In Ns 16mg/250ml) Confirm Administered Dose 16 mg in 250 mls @ ud IV .STK-MED ONE Stop: 04/28/25 12:39 Last Admin: 04/28/25 13:06 Dose: Not Given Documented By: NIXON Non-Admin Reason: Duplicate Medication on eMAR Sodium Chloride (Ns) 1,000 mls @ 999 mls/hr IV .Q1H1M ONE Stop: 04/28/25 13:56 Last Infusion: 04/28/25 14:10 Dose: Infused Documented By: Admin: 04/28/25 13:04 Dose: 999 mls/hr Documented By: NIXON Piperacillin/Tazobactam/Dextrose (Zosyn) 3.375 gm in 50 mls @ 100 mls/hr IV X1 ONE Stop: 04/28/25 13:28 Last Infusion: 04/28/25 14:15 Dose: Infused Documented By: Admin: 04/28/25 13:44 Dose: 100 mls/hr Documented By: NIXON Vancomycin/Sodium Chloride (Vancomycin/Ns 1 Gm Ivpb) 200 mls @ 120 mls/hr IV X1 ONE Stop: 04/28/25 14:39 Last Infusion: 04/28/25 16:15 Dose: Infused Documented By: Admin: 04/28/25 14:27 Dose: 120 mls/hr Documented By: NIXON Acetaminophen (Ofirmev Inj) 1,000 mg in 100 mls @ 250 mls/hr IV Q6H ROBERT Stop: 04/29/25 07:52 Last Admin: 04/28/25 15:17 Dose: Not Given Documented By: BISHNU Non-Admin Reason: Discontinued Sodium Chloride (Ns) 1,000 mls @ 999 mls/hr IV .Q1H1M ONE Stop: 04/28/25 14:31 Last Infusion: 04/28/25 15:43 Dose: Infused Documented By: Admin: 04/28/25 14:47 Dose: 999 mls/hr Documented By: NIXON Acetaminophen (Ofirmev Inj) 1,000 mg in 100 mls @ 250 mls/hr IV X1 ONE Stop: 04/28/25 13:55 Last Infusion: 04/28/25 14:08 Dose: Infused Documented By: Admin: 04/28/25 13:42 Dose: 250 mls/hr Documented By: NIXON Magnesium Sulfate (Magnesium Sulfate Ivpb) 2 gm in 50 mls @ 25 mls/hr IV X1 ONE Stop: 04/28/25 15:59 Last Infusion: 04/28/25 17:03 Dose: Infused Documented By: Admin: 04/28/25 14:27 Dose: 25 mls/hr Documented By: NIXON Vasopressin/Sodium Chloride (Vasostrict/Ns Ivpb) 20 unit in 100 mls @ 9 mls/hr IV .Q11H7M PRN; Protocol PRN Reason: PER PROTOCOL Stop: 05/28/25 17:03 Last Admin: 04/29/25 01:47 Dose: 0.04 unit/min, 12 mls/hr Documented By: Titration: 04/29/25 01:47 Dose: Infused Documented By: Admin: 04/28/25 18:10 Dose: 0.03 unit/min, 9 mls/hr Documented By: RYAN Sodium Chloride (Ns) 1,000 mls @ 999 mls/hr IV .Q1H1M ONE Stop: 04/28/25 18:04 Last Admin: 04/28/25 17:12 Dose: 999 mls/hr Documented By: NIXON Magnesium Sulfate (Magnesium Sulfate Ivpb) 2 gm in 50 mls @ 25 mls/hr IV X1 ONE Stop: 04/28/25 19:04 Last Admin: 04/28/25 18:29 Dose: 25 mls/hr Documented By: RYAN Comments: Pt arrived to ICU @18:00. Med ordered in the ED. Piperacillin/Tazobactam/Dextrose (Zosyn) 3.375 gm in 50 mls @ 12.5 mls/hr IV Q8HR [facility] Stop: 05/05/25 21:59 Last Admin: 04/28/25 21:36 Dose: 12.5 mls/hr Documented By: RAJAT Piperacillin/Tazobactam/Dextrose (Zosyn) 3.375 gm in 50 mls @ 100 mls/hr IV X1 ONE Stop: 04/28/25 17:44 Last Admin: 04/28/25 18:30 Dose: 100 mls/hr Documented By: RYAN Comments: Pt arrived to ICU @18:00. Med ordered in the ED. Lactated Ringer's (Lactated Ringers) 1,000 mls @ 999 mls/hr IV .Q1H1M ONE Stop: 04/28/25 19:45 Last Admin: 04/28/25 18:53 Dose: 999 mls/hr Documented By: RYAN Sodium Bicarbonate 88.23 meq/ (Dextrose) 588.23 mls @ 100 mls/hr IV .Q5H53M [facility] Stop: 05/28/25 19:19 Last Admin: 04/29/25 01:44 Dose: 250 mls/hr Documented By: Infusion: 04/29/25 01:44 Dose: Infused Documented By: Infusion: 04/28/25 23:48 Dose: 200 mls/hr Documented By: Admin: 04/28/25 19:30 Dose: 100 mls/hr Documented By: CLT Sodium Bicarbonate (Sodium Bicarb 8.4% 50ml Vial*) Confirm Administered Dose 100 mls @ ud .ROUTE .STK-MED ONE Stop: 04/28/25 19:26 Last Admin: 04/28/25 20:06 Dose: Not Given Documented By: CLT Non-Admin Reason: Duplicate Medication on eMAR Epinephrine/Sodium Chloride (Adrenalin/Ns 4 Mg Ivpb) 4 mg in 250 mls @ 14.063 mls/hr IV .[id number] PRN; Protocol PRN Reason: per protocol Stop: 05/28/25 20:20 Last Titration: 04/29/25 03:36 Dose: Infused Documented By: Admin: 04/28/25 20:00 Dose: 1 mcg/kg/min, 281.25 mls/hr Documented By: CLT Epinephrine/Sodium Chloride (Adrenalin/Ns 4 Mg Ivpb) 4 mg in 250 mls @ 14.063 mls/hr IV .[id number] PRN; Protocol PRN Reason: per protocol Stop: 05/28/25 20:20 Last Titration: 04/29/25 03:36 Dose: Infused Documented By: Admin: 04/29/25 02:36 Dose: 2 mcg/kg/min, 562.5 mls/hr Documented By: Titration: 04/29/25 02:36 Dose: Infused Documented By: Admin: 04/29/25 00:25 Dose: 2 mcg/kg/min, 562.5 mls/hr Documented By: Titration: 04/29/25 00:25 Dose: Infused Documented By: Admin: 04/28/25 22:31 Dose: 2 mcg/kg/min, 562.5 mls/hr Documented By: CLT Dextrose (D10w 1000 Ml) 1,000 mls @ 100 mls/hr IV .Q10H [facility] Stop: 04/29/25 08:29 Last Admin: 04/28/25 23:02 Dose: Not Given Documented By: CLT Non-Admin Reason: wrong volume Dextrose (D10w 1000 Ml) 500 mls @ 100 mls/hr IV .Q5H [facility] Stop: 04/29/25 03:59 Last Infusion: 04/29/25 03:36 Dose: 0 mls/hr Documented By: Admin: 04/28/25 23:06 Dose: 100 mls/hr Documented By: CLT Dextrose (D10w 1000 Ml) 500 mls @ 50 mls/hr IV .Q10H [facility] Stop: 04/29/25 09:26 Last Admin: 04/28/25 23:34 Dose: 50 mls/hr Documented By: CLT Sodium Bicarbonate (Sodium Bicarb 8.4% 50ml Vial*) Confirm Administered Dose 50 mls @ ud .ROUTE .STK-MED ONE Stop: 04/29/25 00:04 Last Admin: 04/29/25 00:22 Dose: Not Given Documented By: CLT Non-Admin Reason: Duplicate Medication on eMAR Sodium Bicarbonate (Sodium Bicarb 8.4% 50ml Vial*) Confirm Administered Dose 50 mls @ ud .ROUTE .STK-MED ONE Stop: 04/29/25 00:09 Last Admin: 04/29/25 00:22 Dose: Not Given Documented By: CLT Non-Admin Reason: Duplicate Medication on eMAR Sodium Bicarbonate (Sodium Bicarb 8.4% 50ml Vial*) Confirm Administered Dose 250 mls @ ud .ROUTE .STK-MED ONE Stop: 04/29/25 00:19 Phenylephrine HCl 40 mg/ (Sodium Chloride) 100 mls @ 5.625 mls/hr IV .[id number] PRN; Protocol PRN Reason: Per Sepsis Protocol Stop: 05/29/25 01:31 Last Titration: 04/29/25 03:36 Dose: 0 mcg/kg/min, 0 mls/hr Documented By: Titration: 04/29/25 02:25 Dose: 3 mcg/kg/min, 33.75 mls/hr Documented By: Admin: 04/29/25 02:06 Dose: 0.5 mcg/kg/min, 5.625 mls/hr Documented By: CLT Sodium Bicarbonate (Sodium Bicarb 8.4% 50ml Vial*) Confirm Administered Dose 500 mls @ ud .ROUTE .STK-MED ONE Stop: 04/29/25 01:53 Last Admin: 04/29/25 02:26 Dose: Not Given Documented By: CLT Non-Admin Reason: Duplicate Medication on eMAR Sodium Bicarbonate (Sodium Bicarb 8.4% 50ml Vial*) Confirm Administered Dose 150 mls @ ud .ROUTE .STK-MED ONE Stop: 04/29/25 03:07 Last Admin: 04/29/25 04:46 Dose: Not Given Documented By: CLT Non-Admin Reason: Duplicate Medication on eMAR Dopamine HCl/Dextrose (Intropin In D5w Ivpb) 400 mg in 250 mls @ 14.101 mls/hr IV .[id number] ROBERT; Protocol Stop: 05/29/25 03:10 Last Titration: 04/29/25 03:36 Dose: 0 mcg/kg/min, 0 mls/hr Documented By: Admin: 04/29/25 03:10 Dose: 15 mcg/kg/min, 42.303 mls/hr Documented By: CLT Insulin Human Regular (Insulin Hum Regular 1 Unit/0.01 Ml (Per Unit)) 10 unit IV X1 ONE Stop: 04/28/25 22:29 Last Admin: 04/28/25 22:43 Dose: 10 unit Documented By: CLT Co-signed By: Pharmacy Consult (Vancomycin Pharmacy To Dose 1 Each Each) 1 each IV QDAY PRN PRN Reason: CONSULT Stop: 05/29/25 08:59 Sodium Bicarbonate (Sodium Bicarb Inj 8.4% Syr 50 Ml Syringe) Confirm Administered Dose 50 ml IV .STK-MED ONE Stop: 04/28/25 19:12 Last Admin: 04/28/25 20:06 Dose: Not Given Documented By: CLT Non-Admin Reason: Duplicate Medication on eMAR Sodium Bicarbonate (Sodium Bicarb Inj 8.4% Syr 50 Ml Syringe) Confirm Administered Dose 50 ml IV .STK-MED ONE Stop: 04/28/25 19:17 Last Admin: 04/28/25 20:06 Dose: Not Given Documented By: CLT Non-Admin Reason: Duplicate Medication on eMAR Sodium Bicarbonate (Sodium Bicarb Inj 8.4% Syr 50 Ml Syringe) 100 ml IV X1 ONE Stop: 04/28/25 19:20 Last Admin: 04/28/25 19:19 Dose: 100 ml Documented By: CLT Sodium Bicarbonate (Sodium Bicarb Inj 8.4% Syr 50 Ml Syringe) 50 ml IV X1 ONE Stop: 04/28/25 19:31 Last Admin: 04/28/25 20:10 Dose: Not Given Documented By: CLT Non-Admin Reason: Cancelled by Provider Sodium Bicarbonate (Sodium Bicarb Inj 8.4% Syr 50 Ml Syringe) 100 ml IV X1 ONE Stop: 04/28/25 21:17 Last Admin: 04/28/25 21:36 Dose: 100 ml Documented By: CLT Sodium Bicarbonate (Sodium Bicarb Inj 8.4% Syr 50 Ml Syringe) 100 ml IV X1 ONE Stop: 04/28/25 22:03 Last Admin: 04/28/25 22:05 Dose: 100 ml Documented By: CLT Sodium Bicarbonate (Sodium Bicarb Inj 8.4% 1 Meq/Ml 50 Ml Vial) 100 meq IV X1 ONE Stop: 04/28/25 22:09 Last Admin: 04/28/25 22:25 Dose: Not Given Documented By: CLT Non-Admin Reason: Cancelled by Provider Sodium Bicarbonate (Sodium Bicarb Inj 8.4% 1 Meq/Ml 50 Ml Vial) 100 meq IV X1 ONE Stop: 04/28/25 23:43 Last Admin: 04/28/25 23:52 Dose: Not Given Documented By: CLT Non-Admin Reason: Cancelled by Provider Sodium Bicarbonate (Sodium Bicarb Inj 8.4% Syr 50 Ml Syringe) 100 ml IV X1 ONE Stop: 04/28/25 23:54 Last Admin: 04/29/25 00:00 Dose: 100 ml Documented By: CLT Sodium Bicarbonate (Sodium Bicarb Inj 8.4% 1 Meq/Ml 50 Ml Vial) 100 meq IV X1 ONE Stop: 04/29/25 00:25 Last Admin: 04/29/25 00:15 Dose: 100 meq Documented By: CLT Sodium Bicarbonate (Sodium Bicarb Inj 8.4% 1 Meq/Ml 50 Ml Vial) 100 meq IV X1 ONE Stop: 04/29/25 00:25 Last Admin: 04/29/25 00:20 Dose: 100 meq Documented By: CLT Sodium Bicarbonate (Sodium Bicarb Inj 8.4% 1 Meq/Ml 50 Ml Vial) 100 meq IV X1 ONE Stop: 04/29/25 00:26 Last Admin: 04/29/25 00:30 Dose: 100 meq Documented By: CLT Sodium Bicarbonate (Sodium Bicarb Inj 8.4% Syr 50 Ml Syringe) 50 ml IV X1 ONE Stop: 04/29/25 01:46 Last Admin: 04/29/25 01:45 Dose: 50 ml Documented By: CLT Sodium Bicarbonate (Sodium Bicarb Inj 8.4% Syr 50 Ml Syringe) 50 ml IV X1 ONE Stop: 04/29/25 01:17 Last Admin: 04/29/25 01:16 Dose: 50 ml Documented By: CLT Sodium Bicarbonate (Sodium Bicarb Inj 8.4% Syr 50 Ml Syringe) 50 ml IV X1 ONE Stop: 04/29/25 01:23 Last Admin: 04/29/25 01:22 Dose: 50 ml Documented By: CLT Sodium Bicarbonate (Sodium Bicarb Inj 8.4% Syr 50 Ml Syringe) 50 ml IV X1 ONE Stop: 04/29/25 01:31 Last Admin: 04/29/25 01:30 Dose: 50 ml Documented By: CLT Sodium Bicarbonate (Sodium Bicarb Inj 8.4% Syr 50 Ml Syringe) 50 ml IV X1 ONE Stop: 04/29/25 01:35 Last Admin: 04/29/25 01:34 Dose: 50 ml Documented By: CLT Sodium Bicarbonate (Sodium Bicarb Inj 8.4% Syr 50 Ml Syringe) 100 ml IV X1 ONE Stop: 04/29/25 01:57 Last Admin: 04/29/25 01:56 Dose: 100 ml Documented By: CLT Sodium Bicarbonate (Sodium Bicarb Inj 8.4% Syr 50 Ml Syringe) Confirm Administered Dose 100 ml IV .STK-MED ONE Stop: 04/29/25 01:51 Last Admin: 04/29/25 02:27 Dose: Not Given Documented By: CLT Non-Admin Reason: Duplicate Medication on eMAR Sodium Bicarbonate (Sodium Bicarb Inj 8.4% Syr 50 Ml Syringe) 50 ml IV X1 ONE Stop: 04/29/25 02:07 Last Admin: 04/29/25 02:06 Dose: 50 ml Documented By: CLT Sodium Bicarbonate (Sodium Bicarb Inj 8.4% Syr 50 Ml Syringe) 50 ml IV X1 ONE Stop: 04/29/25 02:17 Last Admin: 04/29/25 02:16 Dose: 50 ml Documented By: CLT Sodium Bicarbonate (Sodium Bicarb Inj 8.4% 1 Meq/Ml 50 Ml Vial) 50 meq IV X1 ONE Stop: 04/29/25 02:19 Last Admin: 04/29/25 02:18 Dose: 50 meq Documented By: CLT Sodium Bicarbonate (Sodium Bicarb Inj 8.4% 1 Meq/Ml 50 Ml Vial) 50 meq IV X1 ONE Stop: 04/29/25 02:28 Last Admin: 04/29/25 02:27 Dose: 50 meq Documented By: CLT Sodium Bicarbonate (Sodium Bicarb Inj 8.4% 1 Meq/Ml 50 Ml Vial) 50 meq IV X1 ONE Stop: 04/29/25 02:37 Last Admin: 04/29/25 02:36 Dose: 50 meq Documented By: CLT Sodium Bicarbonate (Sodium Bicarb Inj 8.4% 1 Meq/Ml 50 Ml Vial) 50 meq IV X1 ONE Stop: 04/29/25 02:47 Last Admin: 04/29/25 02:46 Dose: 50 meq Documented By: CLT Sodium Bicarbonate (Sodium Bicarb Inj 8.4% 1 Meq/Ml 50 Ml Vial) 50 meq IV X1 ONE Stop: 04/29/25 02:49 Last Admin: 04/29/25 02:48 Dose: 50 meq Documented By: CLT Sodium Bicarbonate (Sodium Bicarb Inj 8.4% 1 Meq/Ml 50 Ml Vial) 50 meq IV X1 ONE Stop: 04/29/25 02:54 Last Admin: 04/29/25 02:53 Dose: 50 meq Documented By: CLT Sodium Bicarbonate (Sodium Bicarb Inj 8.4% 1 Meq/Ml 50 Ml Vial) 50 meq IV X1 ONE Stop: 04/29/25 02:57 Last Admin: 04/29/25 02:56 Dose: 50 meq Documented By: CLT Sodium Bicarbonate (Sodium Bicarb Inj 8.4% Syr 50 Ml Syringe) 50 ml IV X1 ONE Stop: 04/29/25 02:12 Last Admin: 04/29/25 02:11 Dose: 50 ml Documented By: CLT Sodium Chloride (Sodium Chloride Rt 10% 15 Ml Nebu) 5 ml INH X1 ONE Stop: 04/28/25 14:00 See above Consultations Consultation(s) initiated? (list below): Yes Consultation #1 (Physician, Specialty, Details): I spoke with master cook Dr. Eugene. Discussed patients PMHx, HPI, ED course, exam findings, labs, and radiology results. Data Warehousing Architect accepts the patient for admission. Diagnosis Cardiac arrest differential diagnosis: acute massive pulmonary embolism, acute respiratory failure, acute myocardial infarction and cardiac arrest Most likely diagnosis given after review of the tests above:: Cardiac arrest Admission Indicated Admission indicated?: indicated Admission Request Was there a request for admission?: Yes Admission Attestation Admission request attestation: Discussed case with [] from Hospitalist service regarding admission. Discussed patients ED course, exam findings, labs, and radiology results. The Hospitalist [agrees,declines] to accept the patient for admission. Disposition Plan Disposition Plan: Admit Critical Care Time Critical Care Time Critical Care Time: Yes Total Critical Care Time (min.): 45 Attestation: The high probability of sudden, clinically significant deterioration in the patient's condition required the highest level of my preparedness to intervene urgently. The services I provided to this patient were to treat and/or prevent clinically significant deterioration. Services included the following: chart data review, reviewing nursing notes and/or old charts, documentation time, railroad design consultant collaboration regarding findings and treatment options, medication orders and management, direct patient care, vital sign assessments and ordering, interpreting and reviewing diagnostic studies and lab tests. Aggregate critical care time includes only time during which I was engaged in work directly related to the patient's care, as described above, whether at bedside or elsewhere in the Emergency Department. It did not include time spent performing other reported procedures or the services of residents, students, nurses or physician assistants. Discharge Plan Plan Patient Disposition: Admit Acute Care w/in Hospital Problem List Clinical Impression: Cardiac arrest
[2025-04-28] MEDS: EPINEPHrine in NS 4 MG IVPB 4 MG/250 ML BAG 28.066 MG IV (12:39)
[2025-04-28] MEDS: Norepinephrine/NS 16mg/250ml 16 MG/250 ML BAG 14.101 MG IV (12:50)
--- NOTE | 2025-04-28 12:50 | ESOP_ITS ---
<Statement entered by Eri Flores MD - 05/08/25 01:00> I, Eri Flores MD, have reviewed the history, exam, and assessment of the patient. I have evaluated the patient independently and agree with the plan of care documented by [ ]. All diagnostic studies were reviewed and discussed. I confirm the diagnosis as documented by the Resident. I was present during the Medical Decision Making for this patient. The patient's plan of care was created between myself and the Resident and consistent with our discussion of the patient's case. Procedures Procedure Date / Time 04/28/25 1250 Central Line Placement Right Femoral: Indication(s): shock and poor, or inadequate peripheral venous access Informed consent obtained: procedure done urgently Time out done, and the following verified: correct patient, side and site, procedure, patient position and implants and/or equipment Patient placed on monitor/pulse ox: Yes Hand Hygiene: scrub, soap & water and alcohol-based hand rub Max Sterile Barrier Techniques used: cap, mask, sterile gown and sterile gloves Central line prep: Povidone-Iodine 1% Ultrasound used for placement: No (performed emergently) Sterile Technique if Ultrasound used, including sterile gel: n/a Central line lumen inserted: triple Post procedure: sutured in place, good blood return, all ports aspirated, flushed, capped and sterile dressing applied Post procedure x-ray: tip of catheter in good position Patient tolerated procedure: well and no complications EBL(ml): 5 Complications: none Procedure comment: Procedure performed under supervision of Dr. Flores. Tao Chavez MD, PGY 2. Disclaimer: This note was dictated by speech recognition. Minor errors in weight control lecturer may be present due to voice recognition software. Intubation Indication(s): acute Resp Failure and inability to protect airway Informed consent obtained: procedure done urgently Time out done, and the following verified: correct patient, side and site, procedure, patient position and implants and/or equipment Sedative: none Sedative #2: none Paralytic: other (none) Laryngoscope: Margarita ET tube size: 7.5 ET tube uncuffed: No Tube secured depth (cm): 24 Tube secured location: teeth Tube placement confirmation: visualized tube passing through cords, equal breath sounds bilaterally, no breath sounds over epigastrium and confirmation by capnometry Patient tolerated procedure: well and no complications EBL(ml): 0 Intubation complications: none Additional comments: Procedure performed under supervision of Dr. Flores. Tao Chavez MD, PGY 2. Disclaimer: This note was dictated by speech recognition. Minor errors in weight control lecturer may be present due to voice recognition software.
--- NOTE | 2025-04-28 12:56 | XR_ITS ---
Examination: AP chest single view Technique one AP portable supine chest single view Date and time: April 28, 2025 1358 hrs. Comparison March 24, 2024 Indications: Status post cardiac arrest, hypoxic respiratory failure today Findings: Mild enlargement cardiac contour Tracheal tube tip 6 cm above edith Orogastric tube tip in the distal stomach Mild vascular congestion No aspiration pneumonia Impression: No aspiration pneumonia or pulmonary edema
[2025-04-28] MEDS: SODIUM CHLORIDE 0.9% 1000 ML 1,000 ML 999 ML IV ×3 (13:04→17:12)
--- NOTE | 2025-04-28 13:10 | PC.CC ---
ED Corporate Travel Expert supported with tierra erickson. Phone Operator assisted with placing family in conference room. Phone Operator supported attending ED physician with communication with family.
[2025-04-28 13:19] LABS: Basophils % (Auto) 1 % (0-2.5); Eosinophils % (Auto) 0 % (0-10); Hematocrit 25.3 % (41.0-53.0); Immature Granulocytes % (Auto) 15 % (0-0); Immature Granulocytes Auto 0.56 Thou/mm3 (0.00-0.00); Lymphocytes # (Auto) 2.7 Thou/mm3 (1.0-4.8); Lymphocytes % (Auto) 71 % (10-50); Mean Corpuscular Hemoglobin 31.4 pg (25.0-35.0); Mean Corpuscular Volume 92 fL (80-100); Monocytes # (Auto) 0.4 Thou/mm3 (0.0-0.8); Monocytes % (Auto) 10 % (0-12); Neutrophils # (Auto) 0.1 Thou/mm3 (1.8-7.7); Neutrophils % (Auto) 3 % (37-80); Nucleated Red Blood Cell % 31 /100 WBC (0); RDW Standard Deviation 71.3 fL (35.1-43.9); Red Blood Count 2.74 Miln/mm3 (4.50-5.90); White Blood Count 3.9 Thou/mm3 (3.8-10.6)
[2025-04-28 13:21] LABS: Base Excess -17 (-3-3); HCO3 11 mEq/L (20-26); Inspired Oxygen, FIO2 100 %; O2 Saturation 99 % (91-98); PCO2 37 mmHg (32.0-48.0); PO2 173 mmHg (83-108)
[2025-04-28 13:22] LABS: Allen Test Performed/OK; Puncture Site Right Brachial
[2025-04-28 13:37] LABS: B-Type Natriuretic Peptide 112 pg/mL (0-100)
[2025-04-28] MEDS: ACETAMINOPHEN IVPB 1,000 MG/100 ML VIAL 250 MG IV (13:42)
[2025-04-28 13:43] LABS: Hemoglobin 8.6 g/dL (13.5-16.0); Platelet Count 21 Thou/mm3 (140-440)
[2025-04-28] MEDS: PIPER/TAZO 3.375 GM PREMIX 3.375 GM/50 ML BAG IV ×3 (13:44→21:36)
[2025-04-28 13:48] LABS: Alanine Aminotransferase 148 U/L (10-49); Albumin/Globulin Ratio 1.8 (1.2-2.2); Alkaline Phosphatase 80 U/L (46-116); Anion Gap 23 (7-16); Aspartate Amino Transferase 130 U/L (0-34); BUN/Creatinine Ratio 19 Ratio (12-20); Bilirubin,Total 0.3 mg/dL (0.3-1.2); Blood Urea Nitrogen 23 mg/dL (9-23); Calcium 7.2 mg/dL (8.3-10.6); Calcium (Corrected) 8.8 mg/dL (8.5-10.1); Carbon Dioxide 15.1 mMol/L (20.0-31.0); Chloride 100 mMol/L (98-107); Creatinine (Component) 1.2 mg/dL (0.6-1.3); Estimated Creatinine Clearance 70.1 mL/min (>60); Globulin 1.1 gm/dL (2.3-3.5); Glucose 187 mg/dL (74-106); Lipase 31 U/L (12-53); Magnesium 1.4 mg/dL (1.6-2.6); Osmolality,Calculated 284 (275-295); Potassium 4.1 mMol/L (3.4-5.1); Procalcitonin 31.85 ng/ml (0.0-0.49); Sodium 138 mMol/L (136-145); Total Protein 3.1 gm/dL (5.7-8.2); eGFR > 60 See Note
[2025-04-28 13:51] LABS: Troponin I 0.204 ng/mL (0.0-0.045)
[2025-04-28 13:57] LABS: INR 1.3 (0.9-1.3); Partial Thromboplastin Time 67.2 Seconds (22.0-36.0); Prothrombin Time 13.5 Seconds (9.0-12.2)
[2025-04-28 14:03] LABS: COVID-19 Antigen (In-House) Negative (Negative)
--- NOTE | 2025-04-28 14:17 | XR_ITS ---
Examination: CT brain head without contrast. 2-D sagittal coronal reconstructions Date and time of exam:April 28, 2025, 1615 hours COMPARISON: January 22, 2025 INDICATIONS: Altered mental status today CTDI: vol (mGy):51 DLP: (mGycm):990 Technique: Multiple CT axial sections of the brain have been obtained, 5 mm slice thickness. Contrast has not been administered. 2-D sagittal, coronal reconstructions have been obtained Low dose protocols were performed. One or more of the following dose reduction techniques were used; automated exposure control, adjustment of the mA and/or KV according to patient size, use of iterative reconstruction technique. Findings: Study is severely limited by patient motion Ventricles are not enlarged No gross hemorrhage or mass effect IMPRESSION: Study is severely limited by patient motion No gross hemorrhage or mass effect
--- NOTE | 2025-04-28 14:17 | XR_ITS ---
Examination: CT abdomen with intravenous contrast CT pelvis with intravenous contrast 2-D coronal reconstructions 2-D sagittal reconstructions Date and time of exam:April 28, 2025 1616 hours INDICATIONS: Epigastric pain onset today. Status post cardiopulmonary arrest, diagnosis multiple myeloma CTDI: vol (mGy) 18.7 DLP: (mGycm) 1106 Technique: Multiple axial sections of the abdomen and pelvis have been obtained. 64 slice high-resolution scanner used. 3 mm axial sections have been obtained, post intravenous injection 60 cc [id number] 2-D sagittal, coronal reconstructions obtained. Low dose protocols were performed. One or more of the following dose reduction techniques were used; automated exposure control, adjustment of the mA and/or KV according to patient size, use of iterative reconstruction technique. Findings: Significant bibasilar pneumonia Liver is irregular in contour with fatty infiltration Gallbladder wall appears thickened although patient motion degrades image quality Orogastric tube tip in the duodenum No pancreatic mass Mild ascites Large areas of edema in both kidneys Aortic calcification no aneurysmal dilatation Appendix is fluid-filled but no definite inflammatory change Small bowel loops show wall thickening as well as colon Rectal wall shows pronounced thickening No significant prostatomegaly Urinary bladder is contracted around a Cr catheter Severe osteopenia with widespread osteolytic lesions involving all visualized vertebral bodies IMPRESSION: Bibasilar pneumonia, consider aspiration pneumonia Primary hepatocellular disease Mild ascites Recommend hepatobiliary sonography repeat to exclude cholecystitis Hepatic colopathy, hepatic enteropathy Rectal wall shows pronounced thickening, consider proctitis Widespread osteolytic lesions consistent with the patient's diagnosis of multiple myeloma
[2025-04-28 14:19] LABS: Slide Review Platelets confirmed
[2025-04-28 14:24] LABS: Band Neutrophils (Manual) 2 % (0-6); Lymphocytes (Manual) 78 % (20-44); Monocytes (Manual) 2 % (2-9); Neutrophils (Manual) 18 % (50-70)
[2025-04-28 14:25] LABS: Creatine Kinase 231 U/L (34-171)
[2025-04-28 14:25] LABS: Atypical Lymphs 1+; Smudge Cells 1+
[2025-04-28] MEDS: Magnesium Sulfate 2 GM Ivpb 2 GM/50 ML BAG IV ×2 (14:27→18:29)
[2025-04-28] MEDS: VANCOMYCIN/NS 1 GM IVPB 200 ML IV (14:27)
[2025-04-28 14:37] LABS: Path Review Blood Smear Sent to Pathologist
[2025-04-28] MEDS: fentaNYL CIT INJ 50 mCg/ML AMP 2ML 100 MCG IVP (14:49)
[2025-04-28 16:01] LABS: Reflex Lactate? Y
[2025-04-28] MEDS: EPINEPHrine in NS 4 MG IVPB 4 MG/250 ML BAG 250 MG IV (17:12)
--- NOTE | 2025-04-28 17:17 | ESHP_ITS ---
<Statement entered by Orlando Eugene MD - 04/29/25 07:52> I reviewed the resident?s note and agree with findings and plan as documented in the resident?s note. Catastrophic shock with extraordinary lactic acidosis. History of multiple myeloma recent prolonged hospitalization at [facility]. Imaging studies here concerning for proctitis. Concern for possible chemotherapy induced colitis. Pancytopenia noted. CT abdomen pelvis reviewed. Interpretation without definitive diagnosis. Track lactic acid, continue to resuscitate with IV crystalloids as long as fluid responsive on NICOM. High-dose steroids. MAP goal greater than 65 on pressors Documentation for date of: 04/28/25 HPI History of Present Illness Chief complaint: acute encephalopathy History of present illness: 55 year old male with PMH of multiple myeloma with metastasis, HTN, DM2 who presents to the ER from home for acute encephalopathy. Per family at bedside, patient was admitted at [facility] ICU for the last 3 months, and was discharged 04/19. On 04/22, patient was seen here at the ED for nausea, vomiting, and diarrhea x 3 days. At that time, he was afebrile. CT abdomen at that time showed left lower lobe pneumonia, edematous gallbladder, severe diffuse colitis, ascites, cystitis, and widespread osteolytic lesions. Gallbladder ultrasound showed ascities, no cholelithiasis. Stool sample was sent for C-diff and patient was discharged home on Cipro, Flagyl, and Bentyl. The C- diff sample was cancelled because the specimen was too firm, and needed to be watery to be processed. He went back to [facility] for chemotherapy, and was told he does not need the antibiotics so was discontinued. He comleted his treatment. This morning at 6am, patient had a dark bowel movement without blood. Family spoke to him, he was conversant and did not want any food or water. Family checked on him again around 9am an he was difficult to arouse, so EMS was called. Upon arrival , his GCS was 3. Blood pressure was 45 / 25, blood sugar was 181. He was brought to the ER and CHERYL ANDERSON was called. He was intubated. During intubation, brown content was coming out. An OG tube was placed with 500cc of brown material removed. Patient was hypotensive at 67/41 and tachycardic at 139. He was febrile at 105.5 Labs significant for thrombocytopenia at 21. ABG showed metabolic acidosis with pH at 7.1 and lactic acid at 15. He has a troponin of 0.204 and EKG did not show any gisele ST elevations or depressions. Procal shows 31.85. He was given 1L IVF, and started on epinephrine, levophed, and antibiotics. CXR: no aspiration PNA, pulmonary edema CT head, chest/abdomen/pelvis was ordered, pending read. Review of Systems Review of Systems ROS Unobtainable: unobtainable due to mental status and due to endotracheal tube Exam Vital Signs Temp Pulse Resp BP Pulse Ox O2 Del Method O2 Flow Rate 101.7 F H 106 H 22 H 85/62 L 98 Mechanical Ventilation 50 04/28/25 15:55 04/28/25 15:55 04/28/25 15:55 04/28/25 15:55 04/28/25 15:55 04/28/25 15:55 04/28/25 15:55 FiO2 75 04/28/25 15:55 Narrative Exam Constitutional: Adult male, appears older than stated age. HEENT: NCAT. Pupils weakly reactive to light. R eye pterygium noted. Black/brown material noted in nostrils. Respiratory: Decreased breath sounds bilateral bases. Crackles noted right lung base while OG tube on suction. Cardiac: Sinus tachycardia. Abdomen: Soft, non-distended, non-tender. MSK: No B/L LE edema. Poor peripheral capillary refill. Skin: Dusky cool bilateral lower extremities. Mottling noted to abdomen. Neuro: Not withdrawing to pain. Not opening eyes spontaneously. Lines: R femoral central, PIV, Cr, ETT, OG tube POCUS: hyperdynamic heart. R Lung POCUS with A lines and B-lines Results: Labs 04/28/25 12:36 04/28/25 12:36 Labs: Short CBC 04/28/25 Range/Units 12:36 WBC 3.9 D (3.8-10.6) Thou/mm3 Hgb 8.6 L (13.5-16.0) g/dL Hct 25.3 L (41.0-53.0) % Plt Count 21 L* D (140-440) Thou/mm3 BMP 04/28/25 12:36 Sodium 138 Potassium 4.1 Chloride 100 Carbon Dioxide 15.1 L BUN 23 Creatinine 1.2 D Glucose 187 H Calcium 7.2 L Cardiac Enzymes 04/28/25 04/28/25 Range/Units 12:36 13:48 Total Creatine Kinase 231 H (34-171) U/L Troponin I 0.204 H* (0.0-0.045) ng/mL Liver Function 04/28/25 Range/Units 12:36 Total Bilirubin 0.3 (0.3-1.2) mg/dL AST 130 H (0-34) U/L ALT 148 H (10-49) U/L Alkaline Phosphatase 80 (46-116) U/L Albumin 2.0 L (3.5-5.0) gm/dL ABG Interpretation ABG results: 04/28/25 13:17 ABG pH 7.10 L* ABG pCO2 37 ABG pO2 173 H ABG HCO3 11 L ABG O2 Saturation 99 H ABG Base Excess -17 L Quality Measures Quality Measures sepsis Current suspected stage: septic shock (LA >4 and/or hypotension) Sepsis reassessment completed at (date): 04/28/25 Sepsis reassessment completed at (time): 17:42 Possible source: GI tract/intra-abdominal Blood cultures ordered: yes Antibiotic ordered: Yes Medications Home Medications and Allergies Home Medications ?Medication ?Instructions ?Recorded ?Confirmed ?Type oxycodone 5 mg capsule 5 mg PO Q6H PRN Pain 4 10/10/24 History Allergies Allergy/AdvReac Type Severity Reaction Status Date / Time No Known Allergies Allergy Verified 10/10/24 14:51 Visit Medications Acetaminophen (Acetaminophen Supp 650 Mg Supp) 650 mg ID Q6H PRN PRN Reason: FEVER > 100.4 Stop: 05/28/25 17:14 Famotidine (Famotidine Inj 10 Mg/Ml Vial 2 Ml) 20 mg IVP Q12HR ROBERT Stop: 05/28/25 20:59 Epinephrine/Sodium Chloride (Adrenalin/Ns 4 Mg Ivpb) 4 mg in 250 mls @ 14.033 mls/hr IV .[id number] PRN; Protocol PRN Reason: per protocol Stop: 05/28/25 12:33 Last Titration: 04/28/25 17:07 Dose: Infused Norepinephrine Bitartrate (Levophed In Ns 16mg/250ml) 16 mg in 250 mls @ 3.525 mls/hr IV .Q24H PRN; Protocol PRN Reason: PER protocol Stop: 05/28/25 12:44 Last Titration: 04/28/25 17:06 Dose: 0.4 mcg/kg/min, 28.202 mls/hr Vasopressin/Sodium Chloride (Vasostrict/Ns Ivpb) 20 unit in 100 mls @ 9 mls/hr IV .Q11H7M PRN; Protocol PRN Reason: PER PROTOCOL Stop: 05/28/25 17:03 Sodium Chloride (Ns) 1,000 mls @ 999 mls/hr IV .Q1H1M ONE Stop: 04/28/25 18:04 Last Admin: 04/28/25 17:12 Dose: 999 mls/hr Magnesium Sulfate (Magnesium Sulfate Ivpb) 2 gm in 50 mls @ 25 mls/hr IV X1 ONE Stop: 04/28/25 19:04 Piperacillin/Tazobactam/Dextrose (Zosyn) 3.375 gm in 50 mls @ 12.5 mls/hr IV Q8HR ROBERT Stop: 05/05/25 21:59 Piperacillin/Tazobactam/Dextrose (Zosyn) 3.375 gm in 50 mls @ 100 mls/hr IV X1 ONE Stop: 04/28/25 17:44 Discontinued Medications Fentanyl Citrate (Fentanyl Cit Inj 50 Mcg/Ml Amp 2ml) 100 mcg IVP X1 ONE Stop: 04/28/25 14:37 Last Admin: 04/28/25 14:49 Dose: 100 mcg Sodium Chloride (Ns) 1,000 mls @ 999 mls/hr IV .Q1H1M ONE Stop: 04/28/25 13:56 Last Infusion: 04/28/25 14:10 Dose: Infused Piperacillin/Tazobactam/Dextrose (Zosyn) 3.375 gm in 50 mls @ 100 mls/hr IV X1 ONE Stop: 04/28/25 13:28 Last Infusion: 04/28/25 14:15 Dose: Infused Vancomycin/Sodium Chloride (Vancomycin/Ns 1 Gm Ivpb) 200 mls @ 120 mls/hr IV X1 ONE Stop: 04/28/25 14:39 Last Infusion: 04/28/25 16:15 Dose: Infused Acetaminophen (Ofirmev Inj) 1,000 mg in 100 mls @ 250 mls/hr IV Q6H ROBERT Stop: 04/29/25 07:52 Last Admin: 04/28/25 15:17 Dose: Not Given Sodium Chloride (Ns) 1,000 mls @ 999 mls/hr IV .Q1H1M ONE Stop: 04/28/25 14:31 Last Infusion: 04/28/25 15:43 Dose: Infused Acetaminophen (Ofirmev Inj) 1,000 mg in 100 mls @ 250 mls/hr IV X1 ONE Stop: 04/28/25 13:55 Last Infusion: 04/28/25 14:08 Dose: Infused Magnesium Sulfate (Magnesium Sulfate Ivpb) 2 gm in 50 mls @ 25 mls/hr IV X1 ONE Stop: 04/28/25 15:59 Last Infusion: 04/28/25 17:03 Dose: Infused Sodium Chloride (Sodium Chloride Rt 10% 15 Ml Nebu) 5 ml INH X1 ONE Stop: 04/28/25 14:00 Assessment & Plan Plan Patient is a 55 year old male admitted to the ICU for cardic arrest with ROSC and shock. 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 Avoid fever RRX: CVS Problem: Undifferentiated shock, cardiac arrest with ROSC DDX: Septic in the setting of ?colitis with a fever and procal, hypovolemic versus cardiogenic DX: Will assess with POCUS IVC, NICOM, may consider SvO2 if have access to RA . Trend troponin. Will get formal echo. RX: wean off epinephrine, continue levophed and vasopressin and stress-dose steroids. Goal MAP > 60. Avoid fever. RRX: Respi Problem: Acute hypoxic respiratory failure DDX: Inability to protect airway, GCS 3; ?PNA DX: CXR RX: Continue ventilator to maintain lung-protective volumes with ABG checks after adjustments RRX: Renal Problem: YUSRA DDX: ATN in the setting of shock, pre-renal in the setting of hypovolemia DX: CMP RX: Bolus IV, follow urine output, maintain MAP > 60 for renal perfusion RRX: Problem: AGMA due to lactic acidosis DDX: shock, ?confirm if patient on metformin given history of DM DX: ABG, CMP, Q3H lactic acid, RX: IVF and treat underlying shock RRX: #Hypomagnesia - repleted GI Problem: Colitis - Hepatic colopathy, hepatic enteropathy DDX: DX: CT abdomen/pelvis ordered, shows hepatic colopathy, hepatic enteropathy RX: Empiric antibiotics, see ID RRX: Problem: Elevated LFTS DDX: hepatocellular pattern in the setting of shock, ?mets DX: CT abdomen/pelvis, hepatitis panel RX: Treat underlying shock RRX: Endo Problem: History of DM2, A1c 6.3 DDX: DX: Q6h blood sugar checks RX: RRX: Heme/Onc Problem: Neutropenia (ANC 195), anemia, thrombocytopenia in the setting of multiple myeloma on chemotherapy DDX: Follows up with [facility], last treatment session last week; thrombocytopenia in the setting of sepsis DX: Blood smear, CBC. RX: Filgrastim RRX: Recommend getting records from [facility] and consider reaching out to patient's oncologist. ID Problem: Sepsis due to GNR Bacteremia DDX: ?colitis, ?UTI DX: Procal, blood culture, urine culture, sputum culture RX: Empiric zosyn (04/28- RRX: When cultures return, will narrow antibiotics Health Maintenance Disposition: Admit to ICU for cardiac arrest s/p ROSC, shock. Guarded prognosis. Diet and fluids: NPO, IVF DVT prophylaxis: SCD due to thrombocytopenia GI prophylaxis: pepcid Lines: R femoral central line (04/28-), PIV, ET/OG tube(04/28-), Cr (04/28-) CODE STATUS: FULL I have reviewed and discussed the patient's care with my attending, Dr. Jabier Rothman MD PGY-3
[2025-04-28 17:55] LABS: Troponin I 0.813 ng/mL (0.0-0.045)
[2025-04-28] MEDS: VASOPRESSIN IN NS IVPB 20 UNIT/100 ML BAG 9 UNIT IV (18:10)
--- NOTE | 2025-04-28 18:10 | PC.RT ---
patient was transferred to ICU @1755 with ROOSEVELT Mims with no problem.
[2025-04-28] MEDS: FILGRASTIM INJ (ZARXIO) 300 MCG/0.5 ML SYRINGE SC (18:29)
[2025-04-28] MEDS: HYDROCORTISONE SOD SUCC INJ 100 MG VIAL IV (18:29)
[2025-04-28] MEDS: RINGERS LACTATED 1000 ML 1,000 ML 999 ML IV (18:53)
[2025-04-28 18:56] LABS: Base Excess -28 (-3-3); HCO3 5 mEq/L (20-26); Inspired Oxygen, FIO2 75 %; O2 Saturation 94 % (91-98); PCO2 32 mmHg (32.0-48.0); PO2 117 mmHg (83-108)
[2025-04-28 19:15] LABS: Allen Test Performed/OK; Puncture Site Right Brachial
[2025-04-28 19:16] LABS: pH, Arterial 6.77 (7.35-7.45)
[2025-04-28] MEDS: DEXTROSE 50%-WATER INJ 50 ML SYRINGE IV (19:19)
[2025-04-28] MEDS: Sodium Bicarb Inj 8.4% SYR 50 ML SYRINGE 100 ML IV ×3 (19:19→22:05)
[2025-04-28] MEDS: Sodium Bicarb 8.4% 50ml Vial* 88.23 MEQ in DEXTROSE 5%-WATER 500 ML 100 MEQ IV (19:30)
[2025-04-28] MEDS: EPINEPHrine in NS 4 MG IVPB 4 MG/250 ML BAG 281.25 MG IV (20:00)
[2025-04-28] MEDS: Norepinephrine/NS 16mg/250ml 16 MG/250 ML BAG 105.758 MG IV (20:14)
--- NOTE | 2025-04-28 20:52 | PD.RESPROC ---
Procedures Procedure Date / Time 04/28/252051 Arterial Line Indication(s): frequent arterial line sampling, shock and inability to monitor non-invasive BP Informed consent obtained: obtained from surrogate decision maker Time out done, and the following verified: correct patient, side and site, procedure, patient position and implants and/or equipment Technique used: guide wire technique Post-Procedure: line sutured into place and dry sterile dressing placed Patient tolerated procedure: other EBL(ml): 20 Complications: excessive bleeding Site: left, radial and femoral Procedure comment: Patient required arterial line for frequent ABG sampling due to the fact he was having severe metabolic acidosis. Arterial line was attempted in the left femoral and guidewire technique was used with ultrasound technique. Needle was introduced to the femoral artery and guidewire was later introduced along with arterial line. Upon placing the arterial line guidewire became difficult to remove indicating that it may have become kinked so both arterial line and guidewire removed concurrently. Patient developed hematoma and pressure was held until hematoma stabilized. After that heavy weight was placed upon the femoral site to maintain longstanding pressure at the site. Following that a left radial artery ABG was attempted but artery was difficult to both palpate and visualize. At that point attempts were discontinued for the left side and another resident was called to assist. Second resident was able to successfully place a right sided femoral artery line for frequent ABG sampling. Procedure note to follow.
--- NOTE | 2025-04-28 21:01 | PD.RESPROC ---
Procedures Procedure Date / Time 04/28/252100 Arterial Line Indication(s): frequent arterial line sampling, hypoxic resp failure and shock Informed consent obtained: obtained from surrogate decision maker and implied Time out done, and the following verified: correct patient, side and site, procedure, patient position and implants and/or equipment Technique used: guide wire technique Post-Procedure: line sutured into place and dry sterile dressing placed Patient tolerated procedure: well and no complications EBL(ml): 15 Complications: none Site: right and femoral Procedure comment: A time out was performed. My hands were washed immediately prior to the procedure. I wore a surgical cap, mask with protective eyewear, sterile gown and sterile gloves throughout the procedure. The Right inguinal region was prepped using chlorhexidine scrub and draped in sterile fashion using a three quarter sheet drape and sterile towels. The femoral pulse was identified. Anesthesia was achieved using 1% lidocaine. Palpating the femoral pulse throughout the procedure, the introducer needle was inserted into the femoral artery. Arterial blood was withdrawn. The syringe was removed and a guidewire was advanced through the needle into the femoral artery. The needle was exchanged over the wire for an arterial catheter. The wire was removed and the catheter was secured to the skin using a suture. The patient tolerated the procedure without any hemodynamic compromise. At time of procedure completion, the catheter was connected to the production operations engineer and calibrated. Appropriate waveform and blood pressure tracing was observed. Estimated blood loss is 15 ml. Done under the supervision of attending physician, Dr. Shanti Michaels, PGY1
[2025-04-28 21:10] LABS: Base Excess -27 (-3-3); HCO3 4 mEq/L (20-26); Inspired Oxygen, FIO2 100 %; O2 Saturation 99 % (91-98); PCO2 25 mmHg (32.0-48.0); PO2 179 mmHg (83-108)
[2025-04-28 21:13] LABS: Allen Test Not Performed; Puncture Site Arterial Line; pH, Arterial 6.81 (7.35-7.45)
[2025-04-28 21:16] LABS: Albumin, Serum 1.3 gm/dL (3.5-5.0); Albumin/Globulin Ratio 1.6 (1.2-2.2); Alkaline Phosphatase 293 U/L (46-116); Anion Gap 27 (7-16); BUN/Creatinine Ratio 21 Ratio (12-20); Bilirubin,Total 0.8 mg/dL (0.3-1.2); Blood Urea Nitrogen 25 mg/dL (9-23); Calcium (Corrected) 8.6 mg/dL (8.5-10.1); Chloride 105 mMol/L (98-107); Creatinine (Component) 1.2 mg/dL (0.6-1.3); Estimated Creatinine Clearance 70.1 mL/min (>60); Globulin 0.8 gm/dL (2.3-3.5); Glucose 135 mg/dL (74-106); Osmolality,Calculated 289 (275-295); Potassium 5.8 mMol/L (3.4-5.1); Sodium 142 mMol/L (136-145); Total Protein 2.1 gm/dL (5.7-8.2); eGFR > 60 See Note
[2025-04-28 21:34] LABS: Alanine Aminotransferase 1184 U/L (10-49); Aspartate Amino Transferase 1279 U/L (0-34)
[2025-04-28 21:36] LABS: Calcium 6.4 mg/dL (8.3-10.6); Carbon Dioxide < 10.0 mMol/L (20.0-31.0)
[2025-04-28] MEDS: FAMOTIDINE INJ 10 MG/ML VIAL 2 ML 20 MG IVP (21:36)
[2025-04-28 22:10] LABS: Base Excess 6 (-3-3); HCO3 31 mEq/L (20-26); Inspired Oxygen, FIO2 21 %; O2 Saturation 101 % (91-98); PCO2 51 mmHg (32.0-48.0); PO2 250 mmHg (83-108); pH, Arterial 7.39 (7.35-7.45)
[2025-04-28 22:18] LABS: Allen Test Performed/OK; Puncture Site Right Brachial
[2025-04-28] MEDS: EPINEPHrine in NS 4 MG IVPB 4 MG/250 ML BAG 562.5 MG IV (22:31)
[2025-04-28] MEDS: INSULIN HUM REGULAR 1 UNIT/0.01 ML (PER UNIT) 10 UNIT IV (22:43)
[2025-04-28] MEDS: DEXTROSE 50%-WATER INJ 50 ML SYRINGE 100 ML IV (22:57)
[2025-04-28] MEDS: Norepinephrine/NS 16mg/250ml 16 MG/250 ML BAG 211.517 MG IV (23:04)
[2025-04-28] MEDS: DEXTROSE 10% IV ×2 (23:06→23:34)
[2025-04-28] MEDS: WATER IV ×2 (23:06→23:34)
[2025-04-28] MEDS: HYDROCORTISONE SOD SUCC INJ 100 MG VIAL 50 MG IV (23:18)
[2025-04-28 23:24] LABS: Reflex Lactate? Y
[2025-04-28 23:31] LABS: Base Excess -24 (-3-3); HCO3 5 mEq/L (20-26); Inspired Oxygen, FIO2 21 %; PCO2 29 mmHg (32.0-48.0); PO2 300 mmHg (83-108)
[2025-04-28 23:35] LABS: O2 Saturation 100 % (91-98); Puncture Site Arterial Line
[2025-04-28 23:37] LABS: pH, Arterial 6.88 (7.35-7.45)
[2025-04-28 23:39] LABS: Troponin I 1.744 ng/mL (0.0-0.045)
[2025-04-29] VITALS (19 sets, daily range): BP systolic 47–114; BP diastolic 23–65; PULSE 82–98; RESP 30–31; TEMP 35.2–35.3; O2SAT 48–72
[2025-04-29 00:13] LABS: Base Excess 3 (-3-3); HCO3 29 mEq/L (20-26); Inspired Oxygen, FIO2 100 %; PCO2 49 mmHg (32.0-48.0); PO2 276 mmHg (83-108); pH, Arterial 7.37 (7.35-7.45)
[2025-04-29] MEDS: SODIUM BICARB INJ 8.4% 1 mEq/ML 50 ML VIAL 100 MEQ IV ×3 (00:15→00:30)
[2025-04-29 00:16] LABS: Puncture Site Arterial Line
[2025-04-29] MEDS: EPINEPHrine in NS 4 MG IVPB 4 MG/250 ML BAG 562.5 MG IV ×2 (00:25→02:36)
[2025-04-29 00:55] LABS: Base Excess 0 (-3-3); HCO3 26 mEq/L (20-26); Inspired Oxygen, FIO2 21 %; PCO2 44 mmHg (32.0-48.0); PO2 317 mmHg (83-108); pH, Arterial 7.37 (7.35-7.45)
[2025-04-29 01:08] LABS: Allen Test Performed/OK; Puncture Site Arterial Line
--- NOTE | 2025-04-29 01:14 | XR_ITS ---
Examination: AP chest single view Technique one AP portable upright chest single view Date and time: April 29, 2025 0123 hours INDICATIONS: Postinsertion Tri flow catheter Date and time: April 29, 2025 0181 hours COMPARISON: April 28, 2025 FINDINGS: Interval right internal jugular Tri flow catheter, tip SVC satisfactory position No pneumothorax Bilateral pneumonia in the mid and lower lung zones Mild prominence left ventricle Endotracheal tube tip 3.2 cm above Pamella The orogastric tube is in the stomach IMPRESSION: Bilateral pneumonia Right internal jugular Tri flow catheter tip satisfactory position SVC, no pneumothorax
[2025-04-29] MEDS: Sodium Bicarb Inj 8.4% SYR 50 ML SYRINGE IV ×8 (01:16→02:16)
[2025-04-29 01:18] LABS: O2 Saturation 100 % (91-98)
[2025-04-29] MEDS: Norepinephrine/NS 16mg/250ml 16 MG/250 ML BAG 211.517 MG IV ×2 (01:25→02:25)
--- NOTE | 2025-04-29 01:29 | PD.RESPROC ---
Procedures Procedure Date / Time 04/29/25 0129 Central Line Placement Right IJ: Indication(s): shock, poor, or inadequate peripheral venous access and other Informed consent obtained: obtained from surrogate decision maker Time out done, and the following verified: correct patient, side and site, procedure, patient position and implants and/or equipment Patient placed on monitor/pulse ox: Yes Hand Hygiene: scrub, soap & water and alcohol-based hand rub Max Sterile Barrier Techniques used: cap, mask, sterile gown, sterile gloves and sterile full body drape Central line prep: Chlorhexidine scrub Local anesthesia used: lidocaine 1% Amount of anesthesia used (mL): 5 Ultrasound used for placement: Yes Sterile Technique if Ultrasound used, including sterile gel: yes Central line lumen inserted: triple Post procedure: sutured in place, good blood return, all ports aspirated, flushed, capped and sterile dressing applied Post procedure x-ray: tip of catheter in good position and no pneumothorax seen Patient tolerated procedure: well EBL(ml): 5 Complications: none Procedure comment: Insertion of Tri flow dialysis catheter in right internal jugular vein due to refractory acidosis with multiple pushes of bicarbonate. Try Cr was placed without complications and patient tolerated the procedure well. All ports were aspirated and flushed and postprocedure x-ray was done which appears to show the try flow catheter in good position. Will initiate dialysis
[2025-04-29] MEDS: Sodium Bicarb 8.4% 50ml Vial* 88.23 MEQ in DEXTROSE 5%-WATER 500 ML 250 MEQ IV (01:44)
[2025-04-29] MEDS: VASOPRESSIN IN NS IVPB 20 UNIT/100 ML BAG 12 UNIT IV (01:47)
[2025-04-29] MEDS: Sodium Bicarb Inj 8.4% SYR 50 ML SYRINGE 100 ML IV ×2 (01:56)
[2025-04-29 02:02] LABS: Reflex Lactate? Y
[2025-04-29] MEDS: PHENYLEPHRINE HCL 40 MG in SODIUM CHLORIDE 0.9% 96 ML 5.625 MG IV (02:06)
[2025-04-29] MEDS: SODIUM BICARB INJ 8.4% 1 mEq/ML 50 ML VIAL 50 MEQ IV ×7 (02:18→02:56)
[2025-04-29 02:19] LABS: Lactate (Lactic Acid) > 31.0 mMol/L (0.4-2.0)
[2025-04-29 02:21] LABS: Base Excess 17 (-3-3); HCO3 41 mEq/L (20-26); Inspired Oxygen, FIO2 100 %; PCO2 52 mmHg (32.0-48.0); PO2 211 mmHg (83-108); pH, Arterial 7.51 (7.35-7.45)
[2025-04-29 02:33] LABS: Puncture Site Arterial Line
--- NOTE | 2025-04-29 03:00 | EKG_ITS ---
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: JESSICA : 1970 Requested By: Aliyah Dale Order Number: [id number] Reading MD: Aliyah Dale Measurements Intervals [place] Rate: 88 P: 42 KS: 242 QRS: 44 QRSD: 105 T: 212 QT: 410 QTc: 497 Interpretive Statements SINUS RHYTHM WITH FIRST DEGREE AV BLOCK LOW QRS VOLTAGE ST DEVIATION AND MODERATE T-WAVE ABNORMALITY, CONSIDER LATERAL ISCHEMIA Compared to ECG 03/24/2024 02:14:31 First degree AV block now present Low QRS voltage now present T-wave abnormality now present Possible ischemia now present Intraventricular conduction delay no longer present /store/S0/[id number]/ecg/[id number].pdf
[2025-04-29] MEDS: DOPamine/D5w 400 MG IVPB 400 MG/250 ML BAG 42.303 MG IV (03:10)
[2025-04-29 03:29] LABS: HCO3 55 mEq/L (20-26); Inspired Oxygen, FIO2 21 %; PCO2 43 mmHg (32.0-48.0); PO2 264 mmHg (83-108); pH, Arterial 7.71 (7.35-7.45)
[2025-04-29 03:41] LABS: O2 Saturation 100 % (91-98)
[2025-04-29 03:42] LABS: Puncture Site Arterial Line
--- NOTE | 2025-04-29 03:48 | PD.DPN ---
Documentation for date of: 04/29/25 Pronouncement Note Date and Time of Date of : 04/29/25 Time of : 03:35 PCOD Preliminary cause of : Cardiopulmonary arrest Contributing Factors (1) Metabolic acidemia: Contributing factors: Severe significant metabolic acidosis secondary to lactic acid buildup refractory to multiple bicarbonate pushes and bicarb drip along with CRRT. (2) Lactic acid acidosis: Contributing factors: Lactic acidosis likely secondary to multiple myeloma with multiple metastasis Additional Data Confirmation of : no pulse, no respirations, no heart sounds and pupils fixed and dilated Family: at bedside Attending/PCP notified?: Yes Attending physician: Jimbo Moser M.D. Was code activated?: Yes Autopsy requested?: No deportation examiner notified?: Yes Organ bank notified?: Yes Advance directives: No
--- NOTE | 2025-04-29 04:58 | DES_ITS ---
Documentation for date of: 04/29/25 Summary Date and Time Date of admission: 04/28/25 17:02 Date of : 04/29/25 Time of : 03:35 Summary Details: 55-year-old male with past medical history of hypertension, multiple myeloma on chemotherapy patient, history of pelvic fracture who was brought in from home with acute encephalopathy. Patient was at home at 6 AM and was not feeling hungry and a few hours later when family checked on him again he was difficult to arouse so they called emergency medical services. Upon arrival he was noted to have a GCS of 3 and extremely hypotensive with a blood pressure of 45/25 with a blood sugar of 181. In the emergency department a CODE BLUE was called for the patient's and ROSC was obtained. An OG tube was placed and it was noted that he was having 500 cc of brownish material coming out during both intubation and via the OG tube. He was hypotensive and tachycardic along with a fever of 105.5 with the labs showing significant lactic acidosis of 15 with a pH of 7.1. Procalcitonin was also elevated at 31.85 since the patient received 1 L IV fluids and was started on epinephrine Levophed and antibiotics. Once patient was a little bit more stable a CT abdomen pelvis and chest x-ray was ordered with chest x-ray negative for aspiration pneumonia or pulmonary edema. CT abdo men pelvis for the patient showed bibasilar pneumonia with consideration for aspiration pneumonia mild ascites and primary hepatocellular disease. 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 Patient also was noted to have widespread osteolytic lesions and head CT revealed no gross hemorrhage or mass effect. Overnight patient's lactic acidosis continued to worsen and repeat ABGs came back at less than 6.8 so sodium bicarb was being pushed and patient was later started on a bicarbonate drip. Patient's hypotension continued to worsen so vasopressin and phenylephrine were later added to his regimen. Maps were difficult to sustain greater than 65 so later hydrocortisone was added for the patient and dopamine was also added. Over 20 A of bicarb were given to the patient through the night and eventually nephrology was consulted in regards to potential for dialysis given the fact the patient was having refractory aci demia. Family was contacted multiple times through the night at bedside including his 2 daughters and his son along with his and concerns for poor prognosis were communicated. Family decided that they would like to pursue emergent CRRT for the refractory acidemia as a last resort and continue with full CODE STATUS. A Tri flow dialysis catheter was placed for the patient in the right IJ and half an hour later dialysis was initiated. Prior to the initiation of dialysis patient was receiving bicarbonate ampules every few minutes to maintain blood pressure MAP greater than 60 or systolic blood pressure greater than 90. Once patient was initiated on dialysis he continued to have further hypotension and while family was at bedside he continued to develop worsening hypotension with eventual MAP of being 20 and pulse becoming difficult to palpate. CHERYL ANDERSON was called for the patient around 3:20 AM in the morning with family at bedside and during the code patient received 4 pushes of epinephrine, amiodarone 150 mg, and 1 amp of bicarb. After witnessing our efforts at resuscitation family decided that they would like for us to discontinue compressions. Cardiac contractility was checked with ultrasound, heart sounds were unable to be auscultated, pulse was unable to be felt, pupils were unreactive to light, and breath sounds were unable to be auscultated. Patient was announced at 3:35 AM with family at bedside. Our condolences were offered to the family and customs compliance director was notified in regards to the patient's . Aliyah Dale M.D. PGY-3 Plan of care discussed with supervising attending Dr. Moser Additional Data Confirmation of as documented by pronouncing clinician: no pulse, no resp irations, no heart sounds and pupils fixed and dilated Family: at bedside Attending/PCP notified?: Yes Attending physician: Jimbo Moser M.D. Was code activated?: Yes Autopsy requested?: No rules examiner notified?: Yes Organ bank notified?: No Advance directives: No Hospice patient?: No Visit Providers Provider Primary care physician: Anthony Prabhakar MD Consults: 04/29/25 00:10 Consult to Nephrology Stat Comment: refractory acidosis Consulting Provider: Farhan Casiano Diagnosis Contributing Factors (1) Metabolic acidemia: (2) Lactic acid acidosis: Discharge Plan Prescriptions/Referrals Prescriptions/Med Rec: No Action oxycodone 5 mg Capsule 5 mg PO Q6H PRN (Reason: Pain) ibuprofen 600 mg tablet 600 mg PO Q6H PRN (Reason: pain) Qty: 30 0RF hydrocodone-acetaminophen 5-325 mg tablet See Rx Instructions .ROUTE .COMPLEX MDD 8 PRN (Reason: pain) Qty: 20 0RF Rx Instructions: 1-2 tabs q 6 hours ciprofloxacin HCl [Cipro] 500 mg tablet 500 mg PO BID Qty: 14 0RF metronidazole 500 mg tablet 500 mg PO BID 7 Days Qty: 14 0RF dicyclomine 20 mg tablet 20 mg PO BID Qty: 10 0RF Referrals: Anthony Prabhakar MD [Primary Care Provider] - Patient/Caregiver Discharge Instructions Print Language: Moldovan
[2025-04-29 05:12] LABS: Reflex Lactate? Y
== END 2025-04-29 03:36 | disposition expired | DRG 133 ==
LOC: SERX 13:18 → SERHOLD 17:35 → S2SX 18:00
PROVIDERS: Student in an Organized Health Care Education/Training Program; Admitting Provider Internal Medicine; Emergency Provider Emergency Medicine; PCP Family Medicine; Visit Provider Internal Medicine
DX: J96.01 Acute respiratory failure with hypoxia (principal); R57.8 Other shock; G93.40 Encephalopathy, unspecified; D69.59 Other secondary thrombocytopenia; E11.9 Type 2 diabetes mellitus without complications; E87.20 Acidosis, unspecified; E83.42 Hypomagnesemia; N17.9 Acute kidney failure, unspecified; C90.00 Multiple myeloma not having achieved remission; D64.9 Anemia, unspecified; I10 Essential (primary) hypertension; J18.9 Pneumonia, unspecified organism; K52.9 Noninfective gastroenteritis and colitis, unspecified; N30.90 Cystitis, unspecified without hematuria; R18.8 Other ascites; Z99.2 Dependence on renal dialysis; D70.9 Neutropenia, unspecified; K62.89 Other specified diseases of anus and rectum; I46.8 Cardiac arrest due to other underlying condition
CPT/HCPCS: 36415; 36600; 70450; 71045; 74177; 80053; 80069; 80074; 81001; 82550; 82803; 83036; 83605; 83690; 83735; 83880; 84100; 84145; 84443; 84484; 85025; 85610; 85730; 87040; 87077; 87081; 87086; 87186; 87205; 87493; 87811; 92950; 93005; 94002; 96361; 96365; 96366; 96367; 96368; 99285; A4649; J0131; J0171; J1265; J1720; J1815; J2371; J2543; J2598; J3010; J3370; J3475; J3490; J7030; J7050; J7060; J7120; Q5101; Q9967